=== PATIENT | female | born 1970 | race Asian ===

== ENCOUNTER 2021-01-23 16:56 | Outpatient (REF) | payer OTHER, SELFPAY ==
[2021-01-23 17:58] LABS: Glucose Urine UA NEG (NEG); Leukocyte Esterase Urine NEG (NEG); Nitrite Urine NEG (NEG); Specific Gravity - Urine >= 1.030 (1.005-1.025); Urine Blood NEG (NEG); Urine Ketones 5 MG/DL (NEG); Urine Protein NEG (NEG-TRACE)
[2021-01-23 17:59] LABS: Appearance Urine CLEAR; Color Urine YELLOW
[2021-01-23 18:25] LABS: Hemoglobin 13.5 g/dl (12.0-16.0); Mean Corpuscular HGB Conc 32.9 g/dl (31.0-35.0); Mean Corpuscular Hemoglobin 28.2 pg (27.0-33.0); Mean Corpuscular Volume 85.6 fL (80-98); Mean Platelet Volume 12.5 fL (9.4-12.3); Platelet Count 205 X10*3/uL (160-400); Red Blood Count 4.79 X10*6/uL (4.20-5.50); Red Cell Distribution Width 12.8 % (11.0-16.0); White Blood Count 6.9 X10*3/uL (4.8-10.8)
[2021-01-23 18:27] LABS: Alanine Aminotransferase 34 U/L (0-31); Albumin Level 4.4 g/dL (3.5-5.0); Alkaline Phosphatase 75 U/L (39-117); Anion Gap 13 (12-20); Aspartate Amino Transferase 21 U/L (5-31); Bilirubin Direct 0.3 mg/dL (0.0-0.5); Bilirubin Total 0.5 mg/dL (0.0-1.0); Blood Urea Nitrogen 16 mg/dL (9-16); Calcium 10.4 mg/dL (8.4-10.2); Carbon Dioxide 25 mmol/L (22-29); Chloride 106 mmol/L (96-108); Cholesterol 146 mg/dL; Estimated Glomerular Filt Rate > 60; Glucose Random 90 mg/dL (60-115); HDL Cholesterol 36 mg/dL; LDL Cholesterol Calculated 91 mg/dl; Potassium 4.6 mmol/L (3.3-5.1); Sodium 139 mmol/L (135-145); Total Protein 7.2 g/dL (6.5-8.0); Triglycerides 97 mg/dL
[2021-01-23 18:47] LABS: Thyroid Stimulating Hormone 1.05 uIU/mL (0.32-4.0)
== END 2021-01-23 16:57 | disposition home or self-care (01) ==
LOC: HO.LAB 16:56
PROVIDERS: PCP Internal Medicine; Visit Provider Internal Medicine
DX: E03.9 Hypothyroidism, unspecified (principal)
CPT/HCPCS: 36415; 80048; 80061; 80076; 81003; 84443; 85027

== ENCOUNTER 2021-03-31 13:52 | Outpatient (REF) | payer OTHER, SELFPAY ==
[2021-04-01 13:00] LABS: CT PCR NOT DETECTED (Not Detect.); NG PCR NOT DETECTED (Not Detect.)
[2021-04-01 13:03] LABS: BV Int Neg Control Negative (Negative); BV Int Pos Control Positive (Positive)
[2021-04-04 22:27] LABS: HPV mRNA E6/E7 rflx Not Detected (Not Detected)
== END 2021-03-31 13:53 | disposition home or self-care (01) ==
LOC: HO.LAB 13:52
PROVIDERS: Visit Provider Advanced Practice Midwife
DX: Z01.411 Encounter for gynecological examination (general) (routine) with abnormal findings (principal); Z11.51 Encounter for screening for human papillomavirus (HPV); Z11.3 Encounter for screening for infections with a predominantly sexual mode of transmission; L29.0 Pruritus ani; N89.8 Other specified noninflammatory disorders of vagina; E66.01 Morbid (severe) obesity due to excess calories; Z20.2 Contact with and (suspected) exposure to infections with a predominantly sexual mode of transmission
CPT/HCPCS: 87480; 87491; 87510; 87591; 87624; 87660; 88142

== ENCOUNTER 2021-04-28 14:23 | Outpatient (REF) | payer OTHER, SELFPAY ==
--- NOTE | ~2021-04-28 | MM_ITS ---
EXAMINATION: MM SCREENING DIGITAL BREAST TOMOSYNTHESIS, BILATERAL CLINICAL INFORMATION: Screening. Asymptomatic. The lifetime risk of breast cancer based on the Tyrer-Cuzick Model is 11%. COMPARISON: Outside mammography 12/05/2018 ([facility]). TECHNIQUE: Digital breast tomosynthesis is performed in both the craniocaudal and mediolateral oblique views along with computer-aided detection (CAD). Synthesized 2D images are generated from the tomosynthesis. Additional views are provided: Bilateral CC, bilateral MLO. FINDINGS: There are scattered areas of fibroglandular density (ACR BI-RADS breast composition Category b). There are no significant masses, abnormal calcifications, or other abnormalities. The axilla and skin contours are unremarkable. No significant changes from prior outside exam. MM/MM tomosynthesis screening BI IMPRESSION: No mammographic evidence of malignancy. ASSESSMENT: BI-RADS 1: Negative RECOMMENDATION: Routine annual mammography screening. This patient's information was entered into a reminder system with a target due date for their next mammogram.
== END 2021-04-28 14:24 | disposition home or self-care (01) ==
LOC: HO.MAMMO 14:23
PROVIDERS: Visit Provider Internal Medicine
DX: Z12.31 Encounter for screening mammogram for malignant neoplasm of breast (principal); N64.4 Mastodynia
CPT/HCPCS: 77063; 77067

== ENCOUNTER 2021-10-05 11:40 | Outpatient (REF) | payer OTHER, SELFPAY ==
[2021-10-05 12:14] LABS: Hematocrit 41.8 % (37.0-47.0); Hemoglobin 13.4 g/dl (12.0-16.0); Mean Corpuscular HGB Conc 32.1 g/dl (31.0-35.0); Mean Corpuscular Hemoglobin 27.3 pg (27.0-33.0); Mean Corpuscular Volume 85.1 fL (80.0-98.0); Mean Platelet Volume 11.7 fL (9.4-12.3); Platelet Count 231 X10*3/uL (160-400); Red Blood Count 4.91 X10*6/uL (4.20-5.50); White Blood Count 8.2 X10*3/uL (4.8-10.8)
[2021-10-05 12:29] LABS: Appearance Urine CLEAR; Color Urine YELLOW; Glucose Urine UA NEG (NEG); Leukocyte Esterase Urine NEG (NEG); Nitrite Urine NEG (NEG); Specific Gravity - Urine >= 1.030 (1.005-1.025); Urine Blood 3+ (NEG); Urine Ketones NEG (NEG); Urine Protein NEG (NEG-TRACE)
[2021-10-05 12:39] LABS: Alanine Aminotransferase 26 U/L (0-31); Alkaline Phosphatase 75 U/L (39-117); Anion Gap 13 (12-20); Aspartate Amino Transferase 20 U/L (5-31); Bilirubin Direct 0.2 mg/dL (0.0-0.5); Bilirubin Total 0.5 mg/dL (0.0-1.0); Blood Urea Nitrogen 11 mg/dL (9-16); Calcium 10.3 mg/dL (8.4-10.2); Carbon Dioxide 22 mmol/L (22-29); Chloride 110 mmol/L (96-108); Cholesterol 148 mg/dL; Estimated Glomerular Filt Rate > 60; Glucose Random 95 mg/dL (60-115); HDL Cholesterol 28 mg/dL; LDL Cholesterol Calculated 81 mg/dl; Potassium 4.5 mmol/L (3.3-5.1); Sodium 140 mmol/L (135-145); Triglycerides 198 mg/dL
[2021-10-05 12:53] LABS: Squamous Epithelial Cell Urine TRACE /LPF
[2021-10-05 12:54] LABS: RBC Urine 50-75 /HPF (0); WBC Urine 0-2 /HPF (0-4)
[2021-10-05 13:01] LABS: Thyroid Stimulating Hormone 1.99 uIU/mL (0.32-4.0)
== END 2021-10-05 11:41 | disposition home or self-care (01) ==
LOC: HO.LAB 11:40
PROVIDERS: PCP Internal Medicine; Visit Provider Internal Medicine
DX: E03.9 Hypothyroidism, unspecified (principal); E66.01 Morbid (severe) obesity due to excess calories; L30.9 Dermatitis, unspecified
CPT/HCPCS: 36415; 80048; 80061; 80076; 81001; 84443; 85027

== ENCOUNTER 2022-07-03 11:19 | Outpatient (REF) | payer OTHER, SELFPAY ==
[2022-07-03 12:09] LABS: Hematocrit 42.8 % (37.0-47.0); Hemoglobin 13.7 g/dl (12.0-16.0); Mean Corpuscular Volume 84.3 fL (80.0-98.0); Mean Platelet Volume 11.8 fL (9.4-12.3); Platelet Count 239 X10*3/uL (160-400); Red Blood Count 5.08 X10*6/uL (4.20-5.50); Red Cell Distribution Width 13.1 % (11.0-16.0); White Blood Count 7.9 X10*3/uL (4.8-10.8)
[2022-07-03 12:33] LABS: Estimated Average Glucose 108 mg/dL; Hemoglobin A1c % 5.4 %
[2022-07-03 12:47] LABS: Alanine Aminotransferase 29 U/L (0-31); Albumin Level 4.3 g/dL (3.5-5.0); Alkaline Phosphatase 82 U/L (39-117); Anion Gap 15 (12-20); Aspartate Amino Transferase 19 U/L (5-31); Bilirubin Direct 0.2 mg/dL (0.0-0.5); Bilirubin Total 0.4 mg/dL (0.0-1.0); Blood Urea Nitrogen 15 mg/dL (9-16); Calcium 10.3 mg/dL (8.4-10.2); Carbon Dioxide 22 mmol/L (22-29); Chloride 108 mmol/L (96-108); Cholesterol 145 mg/dL; Estimated Glomerular Filt Rate > 60; Glucose Random 95 mg/dL (60-115); HDL Cholesterol 30 mg/dL; LDL Cholesterol Calculated 88 mg/dl; Potassium 4.6 mmol/L (3.3-5.1); Sodium 140 mmol/L (135-145); Total Protein 7.4 g/dL (6.5-8.0); Triglycerides 138 mg/dL
[2022-07-03 12:53] LABS: Thyroid Stimulating Hormone 1.73 uIU/mL (0.32-4.0)
== END 2022-07-03 11:20 | disposition home or self-care (01) ==
LOC: HO.LAB 11:19
PROVIDERS: PCP Internal Medicine; Visit Provider Internal Medicine
DX: E03.9 Hypothyroidism, unspecified (principal)
CPT/HCPCS: 36415; 80048; 80061; 80076; 83036; 84443; 85027

== ENCOUNTER 2022-07-09 08:51 | Outpatient (REF) | payer OTHER, SELFPAY ==
--- NOTE | ~2022-07-09 | MM_ITS ---
EXAMINATION: MM SCREENING DIGITAL BREAST TOMOSYNTHESIS, BILATERAL CLINICAL INFORMATION: Screening. Asymptomatic. The lifetime risk of breast cancer based on the Tyrer-Cuzick Model is 11.2%. COMPARISON: Mammography: December 05, 2018 and April 28, 2021 TECHNIQUE: Digital breast tomosynthesis is performed in both the craniocaudal and mediolateral oblique views along with computer-aided detection (CAD). Synthesized 2D images are generated from the tomosynthesis. FINDINGS: There are scattered areas of fibroglandular density (ACR BI-RADS breast composition Category b). There are no significant masses, abnormal calcifications, or other abnormalities. MM/MM tomosynthesis screening BI IMPRESSION: No significant changes from prior exam. ASSESSMENT: BI-RADS 1: Negative RECOMMENDATION: Routine annual mammography screening. This patient's information was entered into a reminder system with a target due date for their next mammogram.
== END 2022-07-09 08:52 | disposition home or self-care (01) ==
LOC: HO.MAMMO 08:51
PROVIDERS: Visit Provider Internal Medicine
DX: Z12.31 Encounter for screening mammogram for malignant neoplasm of breast (principal)
CPT/HCPCS: 77063; 77067

== ENCOUNTER → 2022-09-26 09:02 | Outpatient (BNVA) | payer OTHER, SELFPAY | PROVIDERS: PCP Internal Medicine; Visit Provider Advanced Practice Midwife | DX: Z13.89 Encounter for screening for other disorder (principal) ==

== ENCOUNTER 2023-10-02 09:56 | Outpatient (AMB) | payer OTHER, SELFPAY ==
--- NOTE | 2023-10-02 10:09 | A.OFFVIS_ITS ---
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 She is doing well with concerns: Heavy large breast affecting her back pain, limiting exercise and weight loss goals. Sees Dr. Rivera for skin rashes including vulvar treatment for itching. Attempting to eat a healthy diet with calcium and vitamin D and stays active with exercise. Currently sexually active. Denies any vaginal dryness or irritation. Menses have skipped once during the last year, she reports some hot flashes. STI testing offered; she accepts. Last pap smear; 2020. Last mammogram; 2022. Colonoscopy is not UTD. Denies any family history of breast, ovarian or colon cancer. [facility] Medical History Obesity Eczema Acquired hypothyroidism Surgical History History of delivery Family History Mother No problems noted. Father No problems noted. Social History Household Members: Spouse and Children Housing: Apartment Alcohol intake: never Patient Tobacco Use Status: Never used Tobacco e-Cigarette/Vaping Use: Never Used Second Hand Smoke Exposure: No service: No Current occupational status: unemployed Sexual orientation: Straight/Heterosexual Gender identity: Female Cognitive needs: No Hearing needs: No Vision needs: Yes (glasses) Female Reproductive History Menstrual Age of Menarche: 17 Date of last menstrual period: 08/27/23 Total pregnancies: 5 Full term: 4 Number of Living Children: 4 Ab spontaneous: 1 Date of last pap smear: 03/31/21 (neg pap and hpv) Date of Mammogram: 07/09/22 ([facility]) Review of Systems Const All systems reviewed & are unremarkable except as noted in HPI and below Reports as per HPI Eyes Reports no additional complaints ENT Reports no additional complaints Card Reports no additional complaints Resp Reports no additional complaints GI Reports as per HPI and Reports no additional complaints Reports as per HPI Musc Reports no additional complaints Skin/Breast Reports as per HPI Neuro Reports no additional complaints Psych Reports no additional complaints Endo Reports no additional complaints Mann/Lymph Reports no additional complaints Aller/Immun Reports no additional complaints Physical Exam Vital Signs: Last Vital Signs BP 120/86 10/02/23 10:10 BMI result Body Mass Index 41.2 Const General: cooperative, healthy appearing, no acute distress, well developed and alert Orientation/consciousness: patient oriented x3 HEENT Head: Yes normal to inspection Eyes General: appearance normal, both eyes and all related structures Neck Neck: Yes normal visual inspection Thyroid: Thyroid normal Chest Chest palpation & inspection: normal inspection of the chest (Large pendulous) and other ( no puckering, dimpling, peau de orange, retraction, or discharge) Breast/axilla inspection: normal inspection of the breasts Breast/axilla palpation: normal palpation of the breasts Resp Effort & Inspection: normal respiratory effort GI Inspection: Yes normal to inspection, Yes obesity and Yes scar Palpation (GI): Soft to palpation Rectal Exam - Female: deferred General: Yes bladder normal to palpation External Female Exam: normal external appearance and normal appearance of the urethra Speculum Exam - Vagina: normal appearance of the vagina, normal palpation and normal vaginal discharge Speculum Exam - Cervix: normal appearance of the cervix and normal palpation Bimanual exam- vagina & uterus: normal bimanual exam, normal palpation, uterine size normal, bladder normal to palpation, normal palpation and non-tender Bimanual Exam- Adnexa, other: no masses Skin General skin exam: no rashes or lesions noted Rashes: no rashes Neuro General: patient oriented x3 Cognition (Neuro): normal cognition Extrem General: Yes normal to inspection Psych Attitude: cooperative Thought process: Normal thought process present Assessment & Plan Assessment & Plan (1) Encounter for well woman exam with routine gynecological exam: Code(s): Z01.419 - Encounter for gynecological examination (general) (routine) without abnormal findings Plan Discussed: Current recommendations for pap smears per ASCCP guidelines. Breast awareness, periodic self breast exams and yearly mammogram. Maintain a healthy lifestyle, well balanced diet including Calcium 1,200 mg and Vitamin D 600 IU daily, and routine exercise. Use of condoms for prevention. Monitor menstrual cycles, report any unscheduled bleeding, bleeding episodes <21 days apart or heavy/prolonged menstrual bleeding. Call the office for a follow up for any concerns. Once her menses has skipped for full year be considered menopausl. Speak to the PCP regarding colonoscopy planning. All of her questions and concerns were addressed to the best of my ability. RTO in 1 year for annual bike mechanic exam. This note is constructed using voice recognition software. While every effort has been made to ensure accuracy, field artillery cannoneer errors may have been included. Coding Level of Care Code Est Pt Prev Care 40-64y(01797) Diagnoses Encounter for well woman exam with routine gynecological exam Z01.419
[2023-10-02 10:10] VITALS: BP 120/86; BMI 41.2
== END 2023-10-02 10:55 | disposition home or self-care (01) ==
PROVIDERS: Visit Provider Advanced Practice Midwife
DX: Z01.419 Encounter for gynecological examination (general) (routine) without abnormal findings (principal)
CPT/HCPCS: 99396

== ENCOUNTER → 2023-10-02 09:56 | Outpatient (BNVA) | payer OTHER, SELFPAY | PROVIDERS: Visit Provider Advanced Practice Midwife | DX: Z01.419 Encounter for gynecological examination (general) (routine) without abnormal findings (principal) | CPT/HCPCS: 99396 ==

== ENCOUNTER 2023-10-17 14:03 | Outpatient (AMB) | payer OTHER, SELFPAY ==
--- NOTE | 2023-10-17 14:13 | MHC.PC.OV ---
Vital Signs 10/17/23 14:15 Height 5 ft 2.5 in Weight 227 lb BMI 40.9 BP 110/60 Blood Pressure Location Lt brachial Position Sitting Pulse 70 Pulse Source Pulse Oximeter Pulse Oximetry (%) 97 Oxygen Delivery Method Room Air Intake Visit Reasons: Discuss health concerns Intake Note: Patient is here to follow up on Hypothyroidism. Complaint of back pain, sever left knee pain. Tours Hostess Required: No Cushion Filler: Not Required per policy Accompanied by: Self / Same As Patient Allergies No Known Allergies Allergy (Verified 10/17/23 15:07) Medication List - Last Reconciled 10/17/23 by Al Kwong MD hydroxyzine HCl 25 mg PO BID levothyroxine 50 mcg PO DAILY triamcinolone acetonide 0.5% 1 appl topical DAILY Tobacco use date assessed: 10/17/23 Dental Screening Dental Screen Date: 10/17/23 Did you have a dental visit in the last 12 months?: Yes Did you have a dental problem in the last 6 months where you did not have access to dental care?: No Was dental information given to patient?: Patient has dentist HPI Discuss health concerns HPI Details 53-year-old female presents to the office to reestablish her care. Patient continues to have upper back pain. She attributes it to pendulous breast. She has been seeing a behavior interventionist in the past year for a rash between her breasts. They have recommended a reduction in the breast to improve her symptoms. Patient is complaining of left knee pain, worse when she is walking. Would like to get her routine blood work done. [facility] Medical History Obesity Eczema Acquired hypothyroidism Surgical History History of delivery Family History Mother No problems noted. Father No problems noted. Social History Household Members: Spouse and Children Housing: Apartment Alcohol intake: never Patient Tobacco Use Status: Never used Tobacco e-Cigarette/Vaping Use: Never Used Second Hand Smoke Exposure: No service: No Current occupational status: unemployed Sexual orientation: Straight/Heterosexual Gender identity: Female Cognitive needs: No Hearing needs: No Vision needs: Yes (glasses) Female Reproductive History Menstrual Age of Menarche: 17 Questionnaire PHQ-9 Over the last 2 weeks, how often have you been bothered by any of the following problems? 1. Little interest or pleasure in doing things: not at all 2. Feeling down, depressed, or hopeless: not at all 3. Trouble falling or staying asleep, or sleeping too much: not at all 4. Feeling tired or having little energy: not at all 5. Poor appetite or overeating: not at all 6. Feeling bad about yourself - or that you are a failure or have let yourself or your family down: not at all 7. Trouble concentrating on things, such as reading the newspaper or watching television: not at all 8. Moving or speaking so slowly that other people could have noticed. Or the opposite - being so fidgety or restless that you have been moving around a lot more than usual: not at all 9. Thoughts that you would be better off or of hurting yourself in some way: not at all Total score: 0 Depression Screening Interpretation: Negative Depression Screening Done: Yes Source: Developed by Drs. Evan Akbar, Teresa Odonnell, Samir Chandler and colleagues, with an educational otoniel from [employer]. Thrive Questionnaire Date Thrive assessed: 10/17/23 I am a: Patient What is your living situation today?: I have a steady place to live Within the past 12 months, did the food you bought not last and you didn't have the money to get more?: Never true Within the past 12 months, did you worry whether your food would run out before you got money to buy more?: Never true Do you have trouble paying for medicines?: No Do you have trouble getting transportation to medical appointments?: No Do you have trouble paying your heating and electricity bill?: No Do you have trouble taking care of your child, family member or friend?: No Do you have trouble with day-to-day activities such as bathing, preparing meals, shopping, managing finances, etc.?: No Are you currently unemployed and looking for a job?: No Are you interested in more education?: No Currently or been in a relationship where the following occur: no concerns reported THRIVE Score: 0 AUDIT C Alcohol Use Questionnaire (AUDIT-C) 1. How often do you have a drink containing alcohol?: Never Total Score: 0 MAXIMINO-7 AMB Questionnaire MAXIMINO-7 Date MAXIMINO - 7 assessed: 10/17/23 Feeling nervous, anxious, or on edge: 0 = Not at all Not being able to stop or control worryin = Not at all Worrying too much about different things: 0 = Not at all Trouble relaxin = Not at all Being so restless that it is hard to sit still: 0 = Not at all Becoming easily annoyed or irritable: 0 = Not at all Feeling afraid as if something awful might happen: 0 = Not at all Total MAXIMINO-7 score (0-4 normal; 5-9 mild; 10-14 moderate; 15-21 severe): 0 Source: Developed by Drs. Evan Akbar, Teresa Odonnell, Samir Chandler and colleagues, with an educational otoniel from [employer]. Physical exam (Primary Care) Vital Signs: Last Vital Signs Pulse 70 10/17/23 14:15 BP 110/60 10/17/23 14:15 Pulse Ox 97 10/17/23 14:15 Oxygen Delivery Method Room Air 10/17/23 14:15 BMI result Body Mass Index 40.9 Tobacco/Smoking Status: Tobacco use Status Tobacco use date assessed 10/17/23 10/17/23 14:22 Patient Tobacco Use Status Never used Tobacco 10/17/23 14:22 e-Cigarette/Vaping Use Never Used 10/17/23 14:22 PHQ-9: PHQ-9 Score PHQ-9: Total score 0 10/17/23 14:22 Depression Screening Interpretation: Negative Thrive Assessment: Date of Thrive Assessment Date Thrive assessed 10/17/23 10/17/23 14:22 Currently or been in a relationship where the following occur: no concerns reported Assessment and Plan Assessment & Plan (1) Obesity, morbid, BMI 40.0-49.9: Code(s): E66.01 - Morbid (severe) obesity due to excess calories Plan: I have agreed to write a letter supporting the need for breast reduction. Patient will get me the name of the clinic where she would like to get the procedure done. (2) Acquired hypothyroidism: Code(s): E03.9 - Hypothyroidism, unspecified Plan: Blood work has been ordered. Will call with the results. (3) Sprain of left knee: Code(s): S83.92XA - Sprain of unspecified site of left knee, initial encounter Plan: Meloxicam added to the regimen. Knee brace applied. If symptoms do not improve to follow-up here. Orders: Orders Complete Blood Count no Diff Today E03.9 - Hypothyroidism, unspecified, E66.01 - Morbid (severe) obesity due to excess calories Lipid Panel Today E03.9 - Hypothyroidism, unspecified, E66.01 - Morbid (severe) obesity due to excess calories Liver Panel Today E03.9 - Hypothyroidism, unspecified, E66.01 - Morbid (severe) obesity due to excess calories UA and rflx microscopic Today E03.9 - Hypothyroidism, unspecified, E66.01 - Morbid (severe) obesity due to excess calories Hemoglobin A1c Today E03.9 - Hypothyroidism, unspecified, E66.01 - Morbid (severe) obesity due to excess calories Basic Metabolic Panel Today E03.9 - Hypothyroidism, unspecified, E66.01 - Morbid (severe) obesity due to excess calories Thyroid Stimulating Hormone Today E03.9 - Hypothyroidism, unspecified, E66.01 - Morbid (severe) obesity due to excess calories Coding Level of Care Code Est Pt Level 4 (32167) Diagnoses Obesity, morbid, BMI 40.0-49.9 E66.01 Acquired hypothyroidism E03.9 Sprain of left knee S83.92XA
[2023-10-17 14:15] VITALS: BP 110/60; PULSE 70; O2SAT 97; BMI 40.9
== END 2023-10-17 15:15 | disposition home or self-care (01) ==
PROVIDERS: PCP Internal Medicine; Visit Provider Internal Medicine
DX: E03.9 Hypothyroidism, unspecified (principal); E66.01 Morbid (severe) obesity due to excess calories; Z68.41 Body mass index [BMI] 40.0-44.9, adult; S83.92XA Sprain of unspecified site of left knee, initial encounter
CPT/HCPCS: 99214

== ENCOUNTER 2023-10-30 11:34 | Outpatient (REF) | payer OTHER, SELFPAY ==
[2023-10-30 12:59] LABS: Hematocrit 43.7 % (37.0-47.0); Hemoglobin 14.6 g/dl (12.0-16.0); Mean Corpuscular HGB Conc 33.4 g/dl (31.0-35.0); Mean Corpuscular Hemoglobin 28.2 pg (27.0-33.0); Mean Corpuscular Volume 84.4 fL (80.0-98.0); Platelet Count 223 X10*3/uL (160-400); Red Blood Count 5.18 X10*6/uL (4.20-5.50); Red Cell Distribution Width 13.2 % (11.0-16.0); White Blood Count 6.5 X10*3/uL (4.8-10.8)
[2023-10-30 13:10] LABS: Estimated Average Glucose 105 mg/dL; Hemoglobin A1c % 5.3 % (<6.0)
[2023-10-30 13:34] LABS: Alanine Aminotransferase 35 U/L (0-31); Alkaline Phosphatase 87 U/L (39-117); Anion Gap 9 (12-20); Aspartate Amino Transferase 20 U/L (5-31); Bilirubin Direct 0.2 mg/dL (0.0-0.5); Bilirubin Total 0.5 mg/dL (0.0-1.0); Blood Urea Nitrogen 11 mg/dL (9-16); Calcium 10.1 mg/dL (8.4-10.2); Carbon Dioxide 24 mmol/L (22-29); Chloride 111 mmol/L (96-108); Cholesterol 145 mg/dL (<200); Estimated Glomerular Filt Rate > 60; Glucose Random 108 mg/dL (60-115); HDL Cholesterol 30 mg/dL (>40); LDL Cholesterol Calculated 92 mg/dL (<100); Potassium 4.3 mmol/L (3.3-5.1); Sodium 140 mmol/L (135-145); Triglycerides 117 mg/dL (<150)
[2023-10-30 13:50] LABS: Thyroid Stimulating Hormone 2.44 uIU/mL (0.32-4.0)
[2023-10-30 14:23] LABS: Appearance Urine Cloudy; Color Urine Dark Yellow; Glucose Urine UA Negative (Negative); Leukocyte Esterase Urine Small (1+) (Negative); Nitrite Urine Negative (Negative); PH 5.5 (5.0-9.0); Specific Gravity - Urine 1.025 (1.005-1.025); UMIC TRIGGER UA YES; Urine Blood Large (3+) (Negative); Urine Ketones Negative (Negative); Urine Protein 30 (1+) mg/dL (Neg-Trace)
[2023-10-30 14:30] LABS: Bacteria Urine Trace (None Seen); Hyaline Casts Urine 0-2 /LPF (0-2); RBC Urine >20 /HPF (0-2); Squamous Epithelial Cell Urine 0-2 /HPF (0-2); WBC Urine 21-50 /HPF (0-5)
== END 2023-10-30 11:35 | disposition home or self-care (01) ==
LOC: HO.LAB 11:34
PROVIDERS: PCP Internal Medicine; Visit Provider Internal Medicine
DX: E66.01 Morbid (severe) obesity due to excess calories (principal); E03.9 Hypothyroidism, unspecified
CPT/HCPCS: 36415; 80048; 80061; 80076; 81001; 83036; 84443; 85027

== ENCOUNTER 2024-08-03 10:42 | Outpatient (REF) | payer OTHER, SELFPAY | END 2024-08-03 10:43 | disposition home or self-care (01) | LOC: HO.LAB 10:42 | PROVIDERS: PCP Internal Medicine; Visit Provider Internal Medicine | DX: M54.9 Dorsalgia, unspecified (principal); J30.9 Allergic rhinitis, unspecified; E03.9 Hypothyroidism, unspecified; Z23 Encounter for immunization | CPT/HCPCS: 90471; 90656; 99212 ==

== ENCOUNTER 2024-08-03 10:42 | Outpatient (AMB) | payer OTHER, SELFPAY ==
[2024-08-03 10:46] VITALS: BP 136/80; PULSE 64; O2SAT 98; BMI 32.2
--- NOTE | 2024-08-03 10:46 | MHC.PC.OV ---
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 She has successfully achieved significant weight loss, dropping from 227 lbs to 179 lbs, which lowered her BMI to suitable levels for surgical candidacy. Patient was succesful because of her decreased dietary intake and phenteramine. Patient continues to have lower back pain despite losing weight. She is hoping that the health insurance company would approve the breast reduction surgery. In addition, patient reports halitosis, which is possibly linked to chronic sinus congestion. In addition she has Allergic rhinitis and symptoms of eczema, such as ear itching, are ongoing and previously unmedicated on a regular basis. Patient is also requesting a mammogram. [facility] Medical History (Updated 08/03/24 @ 12:46 by Al Kwong MD) Allergic rhinitis Obesity Eczema Acquired hypothyroidism Surgical History History of delivery Family History Mother No problems noted. Father No problems noted. Social History Household Members: Spouse and Children Housing: Apartment Alcohol intake: never Patient Tobacco Use Status: Never used Tobacco e-Cigarette/Vaping Use: Never Used Second Hand Smoke Exposure: No service: No Current occupational status: unemployed Sexual orientation: Straight/Heterosexual Gender identity: Female Cognitive needs: No Hearing needs: No Vision needs: Yes (glasses) Female Reproductive History Menstrual Age of Menarche: 17 Questionnaire Thrive Questionnaire Date Thrive assessed: 10/17/23 AUDIT C Alcohol Use Questionnaire (AUDIT-C) 1. How often do you have a drink containing alcohol?: Never 3. How often do you have six or more drinks on one occasion?: Never Total Score: 0 MAXIMINO-7 AMB Questionnaire MAXIMINO-7 Date MAXIMINO - 7 assessed: 10/17/23 Source: Developed by Drs. Evan Akbar, Teresa Odonnell, Samir Chandler and colleagues, with an educational otoniel from [employer]. Physical exam (Primary Care) Vital Signs: Last Vital Signs Pulse 64 08/03/24 10:46 BP 136/80 08/03/24 10:46 Pulse Ox 98 08/03/24 10:46 Oxygen Delivery Method Room Air 08/03/24 10:46 BMI result Body Mass Index 32.2 Tobacco/Smoking Status: Tobacco use Status Tobacco use date assessed 10/17/23 08/03/24 10:46 Patient Tobacco Use Status Never used Tobacco 08/03/24 10:46 e-Cigarette/Vaping Use Never Used 08/03/24 10:46 Thrive Assessment: Date of Thrive Assessment Date Thrive assessed 10/17/23 08/03/24 10:46 Const General: cooperative and healthy appearing Nutritional Appearance: well nourished Orientation/consciousness: patient oriented x3 Limitations: no limitations HENMT Head: Yes normal to inspection Eyes General: appearance normal, both eyes and all related structures Neck Neck: Yes normal visual inspection Chest Chest palpation & inspection: normal palpation of entire chest wall Resp Effort & Inspection: normal respiratory effort Neuro General: patient oriented x3 Office Procedures Flu Questionnaire Does the patient have a severe egg allergy?: No Does the patient have severe life threatening allergies?: No Does the patient have a fever or illness today?: No Has the patient ever had Guillain-[place] Syndrome?: No Has the patient ever had any past reaction to a flu shot?: No Immunizations Fluarix Triv [id number] (PF) 45 mcg (15 mcg x 3)/0.5 mL IM syringe Performing Provider: Al Kwong MD [facility] Administered by: CANDICE Nicole on 08/03/24 11:19 Dose Route Admin Location Dispensed Lot Number Expiration Date [facility] Cul[employer] Specialist 0.5 mL IM Left Deltoid 0.5 mL [id number] 03/15/25 [id number] [employer] VIS Given Date VIS Provided VIS Publication Date 08/03/24 Single Vaccine 21 Eligibility Eligibility Date Funding Source Not [facility] Eligible 08/03/24 Private Coding Level of Care Code Est Pt Level 4 (16112) Diagnoses Allergic rhinitis J30.9 Acquired hypothyroidism E03.9 Upper back pain M54.9 Assessment & Plan Assessment & Plan (1) Allergic rhinitis: Code(s): J30.9 - Allergic rhinitis, unspecified Category: Medical Plan: Flonase and cetirizine ordered. (2) Acquired hypothyroidism: Code(s): E03.9 - Hypothyroidism, unspecified Category: Medical Plan: Blood work to check TSH has been ordered. Based on the results, her thyroid medications will be adjusted. (3) Upper back pain: Code(s): M54.9 - Dorsalgia, unspecified Category: Medical Plan: Patient continues to have upper back pain despite losing weight and other measures. She should be considered for breast reduction surgery and hopefully her insurance company approves of the same Orders: Orders Influenza [id number] Immunization Today Z23 - Encounter for immunization
== END 2024-08-03 11:25 | disposition home or self-care (01) ==
PROVIDERS: PCP Internal Medicine; Visit Provider Internal Medicine
DX: J30.9 Allergic rhinitis, unspecified (principal); E03.9 Hypothyroidism, unspecified; M54.9 Dorsalgia, unspecified; Z23 Encounter for immunization

== ENCOUNTER 2024-08-05 10:57 | Outpatient (REF) | payer OTHER, SELFPAY ==
[2024-08-05 11:43] LABS: Hematocrit 41.1 % (37.0-47.0); Hemoglobin 13.8 g/dl (12.0-16.0); Mean Corpuscular HGB Conc 33.6 g/dl (31.0-35.0); Mean Corpuscular Hemoglobin 27.9 pg (27.0-33.0); Mean Corpuscular Volume 83.2 fL (80.0-98.0); Mean Platelet Volume 11.7 fL (9.4-12.3); Platelet Count 223 X10*3/uL (160-400); Red Blood Count 4.94 X10*6/uL (4.20-5.50); White Blood Count 6.7 X10*3/uL (4.8-10.8)
[2024-08-05 11:57] LABS: Appearance Urine Clear; Color Urine Yellow; Glucose Urine UA Negative (Negative); Leukocyte Esterase Urine Trace (Negative); Nitrite Urine Negative (Negative); UMIC TRIGGER UA YES; Urine Blood Moderate (2+) (Negative); Urine Ketones Negative (Negative); Urine Protein Negative (Neg-Trace)
[2024-08-05 12:07] LABS: Bacteria Urine Trace (None Seen); Hyaline Casts Urine 0-2 /LPF (0-2); RBC Urine 0-2 /HPF (0-2); WBC Urine 0-5 /HPF (0-5)
[2024-08-05 12:33] LABS: Alanine Aminotransferase 23 U/L (0-31); Albumin Level 4.2 g/dL (3.5-5.0); Alkaline Phosphatase 85 U/L (39-117); Anion Gap 10 (12-20); Aspartate Amino Transferase 22 U/L (5-31); Bilirubin Direct 0.2 mg/dL (0.0-0.5); Bilirubin Total 0.5 mg/dL (0.0-1.0); Blood Urea Nitrogen 16 mg/dL (9-16); Calcium 10.2 mg/dL (8.4-10.2); Carbon Dioxide 27 mmol/L (22-29); Chloride 105 mmol/L (96-108); Cholesterol 138 mg/dL (<200); Estimated Glomerular Filt Rate > 60; Glucose Random 95 mg/dL (60-115); HDL Cholesterol 40 mg/dL (>40); LDL Cholesterol Calculated 85 mg/dL (<100); Potassium 4.4 mmol/L (3.3-5.1); Sodium 138 mmol/L (135-145); Total Protein 7.1 g/dL (6.5-8.0); Triglycerides 66 mg/dL (<150)
[2024-08-05 12:35] LABS: Thyroid Stimulating Hormone 1.93 uIU/mL (0.32-4.0)
== END 2024-08-05 10:58 | disposition home or self-care (01) ==
LOC: HO.LAB 10:57
PROVIDERS: PCP Internal Medicine; Visit Provider Internal Medicine
DX: E03.9 Hypothyroidism, unspecified (principal); J30.9 Allergic rhinitis, unspecified
CPT/HCPCS: 36415; 80048; 80061; 80076; 81001; 81003; 84443; 85027

== ENCOUNTER 2024-08-28 14:26 | Outpatient (REF) | payer OTHER, SELFPAY ==
--- OUTSIDE RECORDS SUMMARY | 2024-08-28 14:27 | XMS_ITS | Continuity of Care Document ---
Author Organization [facility] ty[facility] Address [address] [place] [address] [address] [place] [address]- Care Team Providers Care Urgent Care Nurse Practitioner Name Role Phone Elenita AVERY, Al Almaguer Primary Care Physic catalina Encounter [facility] Date(s): 07/08/24 - 08/07/24 [facility] [address] [place] [id number] Attending Physician: Chapis Stovall Admitting Physician: Chapis Stovall Referring Physician: Chapis Stovall Encounter Type: Triage Allergies, Adverse Reactions, Alerts No Known Allergies Immunizations Given and Recorded Vaccine Date Status Refusal Reason diphtheria/tetanus/pertussis, acel(DTaP) 1 02/13/12 Given 1Admin Note: VIS 10-09-11 Medications (Vitamin D3) Cholecalciferol 400 CUSTODIAL units/mL oral syringe 1 mL 1999 Unknown, Oral, 0 Refill(s), Take 2,000 Units by mouth daily., 0 Refills, 07/08/24 8:42:00 AM EDT, Partial fill upon patient request if the prescription is for a schedule II opioid drug. Start Date: 07/08/24 Status: Ordered Repeat number: 1 betamethasone topical dipropionate 0.05% lotion 0 Refill(s), APPLY TO SCALP TWICE A DAY NEEDED FLARES, DECREASE TO DAILY /EVERY OTHER DAY SYMPTOMS IMPROVE, 0 Refills, 11/30/23 8:00:00 PM EDT, Partial fill upon patient request if the prescription is for a schedule II opioid drug. Start Date: 11/30/23 Status: Ordered Repeat number: 1 clobetasol 0.05% topical cream 0 Refill(s), 0 Refills, 12/07/23 8:00:00 PM EDT, Partial fill upon patient request if the prescription is for a schedule II opioid drug. Start Date: 12/07/23 Status: Ordered Repeat number: 1 hydrocortisone 2.5% topical ointment 0 Refill(s), APPLY TO ITCHY AREAS ON FACE, UNDER BREASTS, AND IN GROIN TWOXDAILY DECREASE USE SYMPTOMS IMPROVE, 0 Refills, 01/02/24 8:00:00 PM EDT, Partial fill upon patient request if the prescription is for a schedule II opioid drug. Start Date: 01/02/24 Status: Ordered Repeat number: 1 levothyroxine 0.1 mg oral tablet 1 tablet = 100 mcg, By Mouth, Daily, 1 tab daily but take 2 on Saturday and Saturday., # 38 tablet, 5 Refills, Maintenance, 04/18/15 3:37:47 PM EDT, Tablet, [facility]/pharmacy #[id number] Start Date: 04/18/15 Status: Ordered Quantity: 38.0 Unit: tablet Repeat number: 6 phentermine 15 mg oral capsule 15 Unknown, Oral, 1 Refill(s), take 1 capsule by mouth daily before breakfast, 0 Refills, 07/06/24 8:00:00 PM EDT, Partial fill upon patient request if the prescription is for a schedule II opioid drug. Start Date: 07/06/24 Status: Ordered Repeat number: 1 Problem List Condition Confirmation Course Effective Dates Status Health [facility] Informant COVID-19 1 Confirmed 06/19/22 Active Female infertility associated with male factors Confirmed Active Obese class I Confirmed Active Confirmed Active 1Problem added by Discern Expert Social History Social History Type Response Smoking Status Never smoker entered on: 07/28/15 Sex Sex Representation Female (finding) Patient Care team information Care Team Personnel Name: Elenita AVERY, Al Almaguer Position: Reference Physician Member Role: PCP Address: [address] [place] [address]- Telecom: Care Team Related Persons Name: DUONG DE JESUSHAMMAD Insurance Providers Guarantor name: [facility] Information #: 1 Payer: [employer] Member Number: NA Policy Number: NA Group Number: NA
--- OUTSIDE RECORDS SUMMARY | 2024-08-28 14:27 | XMS_ITS | Continuity of Care Document ---
Author Organization [facility] tyree Address [address] [place] [address] [address] [place] [address]- Care Team Providers Care Distribution Operations Supervisor Name Role Phone Elenita AVERY, Al Almaguer Primary Care Physic catalina [place] [facility] [place]/24 [facility] [address] [place] [id number] Encounter Type: Triage Allergies, Adverse Reactions, Alerts [...] Refills, Maintenance, 04/18/15 3:37:47 PM EDT, Tablet, [id number] Start Date: 04/18/15 Status: Ordered Quantity: [...] Reference Physician Member Role: PCP Address: [address] [place] [address]- Telecom: Care Team Related Persons Name: ELVER DE JESUS Insurance Providers Guarantor name: [facility] Information #: 1 Payer: [employer] Member Number: NA Policy Number: NA Group Number: NA
== END 2024-08-28 14:27 | disposition home or self-care (01) ==
LOC: HO.MAMMO 14:26
PROVIDERS: PCP Internal Medicine; Visit Provider Internal Medicine
DX: Z12.31 Encounter for screening mammogram for malignant neoplasm of breast (principal)
CPT/HCPCS: 77063; 77067

== ENCOUNTER → 2024-08-28 14:30 | Outpatient (BNV) | payer OTHER, SELFPAY | PROVIDERS: PCP Internal Medicine; Visit Provider Internal Medicine | DX: Z12.31 Encounter for screening mammogram for malignant neoplasm of breast (principal) | CPT/HCPCS: 77063; 77067 ==

== ENCOUNTER 2024-11-19 10:35 | Outpatient (AMB) | payer OTHER, SELFPAY ==
--- NOTE | 2024-11-19 10:49 | MHC.PC.OV ---
Vital Signs 11/19/24 10:51 Height 5 ft 2.5 in Weight 181 lb BMI 32.6 BP 130/66 Blood Pressure Location Lt brachial Position Sitting Pulse 62 Pulse Source Pulse Oximeter Temp 97.5 F Temp Source Temporal Artery Scan Pulse Oximetry (%) 98 Oxygen Delivery Method Room Air Intake Visit Reasons: 3mth f/u Intake Note: Patient is here to follow up on Hyprothyroidism.. 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 Boom Stick Worker: Not Required per policy Accompanied by: Self / Same As Patient Allergies No Known Allergies Allergy (Verified 11/19/24 14:00) Medication List - Last Reconciled 11/19/24 by Al Kwong MD fluticasone propionate 50 mcg/actuation (Flonase Allergy Relief) 1 spray intranasal DAILY hydroxyzine HCl 25 mg PO BID levothyroxine 50 mcg PO DAILY phentermine 15 mg PO QAM triamcinolone acetonide 0.5% 1 appl topical DAILY Tobacco use date assessed: 11/19/24 Dental Screening Dental Screen Date: 11/19/24 Did you have a dental visit in the last 12 months?: No Did you have a dental problem in the last 6 months where you did not have access to dental care?: No Was dental information given to patient?: No [facility] Medical History (Updated 08/03/24 @ 12:46 by Al Kwong MD) Allergic rhinitis Obesity Eczema Acquired hypothyroidism Surgical History History of delivery Family History Mother No problems noted. Father No problems noted. Social History Household Members: Spouse and Children Housing: Apartment Alcohol intake: never Patient Tobacco Use Status: Never used Tobacco e-Cigarette/Vaping Use: Never Used Second Hand Smoke Exposure: No service: No Current occupational status: unemployed Sexual orientation: Straight/Heterosexual Gender identity: Female Cognitive needs: No Hearing needs: No Vision needs: Yes (glasses) Female Reproductive History Menstrual Age of Menarche: 17 Questionnaire PHQ-9 Over the last 2 weeks, how often have you been bothered by any of the following problems? 1. Little interest or pleasure in doing things: not at all 2. Feeling down, depressed, or hopeless: not at all 3. Trouble falling or staying asleep, or sleeping too much: not at all 4. Feeling tired or having little energy: not at all 5. Poor appetite or overeating: not at all 6. Feeling bad about yourself - or that you are a failure or have let yourself or your family down: not at all 7. Trouble concentrating on things, such as reading the newspaper or watching television: not at all 8. Moving or speaking so slowly that other people could have noticed. Or the opposite - being so fidgety or restless that you have been moving around a lot more than usual: not at all 9. Thoughts that you would be better off or of hurting yourself in some way: not at all Total score: 0 Depression Screening Interpretation: Negative Depression Screening Done: Yes Source: Developed by Drs. Evan Akbar, Teresa Odonnell, Samir Chandler and colleagues, with an educational otoniel from [employer]. Thrive Questionnaire Date Thrive assessed: 11/19/24 I am a: Patient What is your living situation today?: I have a steady place to live Within the past 12 months, did the food you bought not last and you didn't have the money to get more?: Never true Within the past 12 months, did you worry whether your food would run out before you got money to buy more?: Never true Do you have trouble paying for medicines?: No Do you have trouble getting transportation to medical appointments?: No Do you have trouble paying your heating and electricity bill?: No Do you have trouble taking care of your child, family member or friend?: No Do you have trouble with day-to-day activities such as bathing, preparing meals, shopping, managing finances, etc.?: No Are you currently unemployed and looking for a job?: No Are you interested in more education?: No Please select the resources that you would like help with: None Currently or been in a relationship where the following occur: No concerns reported THRIVE Score: 0 AUDIT C Alcohol Use Questionnaire (AUDIT-C) 1. How often do you have a drink containing alcohol?: Never 3. How often do you have six or more drinks on one occasion?: Never Total Score: 0 MAXIMINO-7 AMB Questionnaire MAXIMINO-7 Date MAXIMINO - 7 assessed: 11/19/24 Feeling nervous, anxious, or on edge: 0 = Not at all Not being able to stop or control worryin = Not at all Worrying too much about different things: 0 = Not at all Trouble relaxin = Not at all Being so restless that it is hard to sit still: 0 = Not at all Becoming easily annoyed or irritable: 0 = Not at all Feeling afraid as if something awful might happen: 0 = Not at all Total MAXIMINO-7 score (0-4 normal; 5-9 mild; 10-14 moderate; 15-21 severe): 0 Source: Developed by Drs. Evan Akbar, Teresa Odonnell, Samir Chandler and colleagues, with an educational otoniel from [employer]. Physical exam (Primary Care) Vital Signs: Last Vital Signs Temp 97.5 F 11/19/24 10:51 Pulse 62 11/19/24 10:51 BP 130/66 11/19/24 10:51 Pulse Ox 98 11/19/24 10:51 Oxygen Delivery Method Room Air 11/19/24 10:51 Care Plan Goal for BP management: Blood pressure is in range. BMI result Body Mass Index 32.6 BMI Assessment/Plan discussion: High (1 lb per week weight loss suggested.) BMI High, discussed plan: lifestyle, weight reduction and dietary Tobacco/Smoking Status: Tobacco use Status Tobacco use date assessed 11/19/24 11/19/24 10:57 Patient Tobacco Use Status Never used Tobacco 11/19/24 10:57 e-Cigarette/Vaping Use Never Used 11/19/24 10:57 PHQ-9: PHQ-9 Score PHQ-9: Total score 0 11/19/24 11:13 Depression Screening Interpretation: Negative Thrive Assessment: Date of Thrive Assessment Date Thrive assessed 11/19/24 11/19/24 10:57 Currently or been in a relationship where the following occur: No concerns reported Coding Level of Care Code Est Pt Level 4 (98769) Complex EM visit Add On G2211 Diagnoses Acquired hypothyroidism E03.9 Obesity, morbid, BMI 40.0-49.9 E66.01 Allergic rhinitis J30.9 Assessment & Plan Assessment & Plan (1) Acquired hypothyroidism: Code(s): E03.9 - Hypothyroidism, unspecified Category: Medical Plan: TSH is in range. Continue current medications. (2) Obesity, morbid, BMI 40.0-49.9: Code(s): E66.01 - Morbid (severe) obesity due to excess calories Category: Medical Plan: Patient is scheduled for bilateral mammoplasty. After the procedure is complete to follow-up here. (3) Allergic rhinitis: Code(s): J30.9 - Allergic rhinitis, unspecified Category: Medical Plan: An ENT appointment will be scheduled. She may benefit from allergy treatment. Plan History of Present Illness The patient is a 54-year-old female presenting to discuss her chronic medical conditions. She is being scheduled for breast reduction surgery. Continues to have sore throat. Previous prescribed meds (steroid nasal sprays not of much help) . A Sleep study has been performed the results are not available. Concomitantly, she is dealing with allergic rhinitis, experiencing bothersome mucus accumulation and its sequela, such as throat discomfort and halitosis. Prior allergy testing confirmed sensitivities to environmental allergens, though prior pharmacological interventions have not effectively managed her symptoms. Referral to the otolaryngology specialty for further allergy management is anticipated. The patient comments on experiencing acute episodes of sore throat, which she associates with these chronic conditions. Social History - Patient engages in weight management efforts. - Symptoms have impacted daily functioning due to excessive snoring and associated sleep disruption. - Stress due to postponed surgical appointments affecting management of chronic conditions. Review of Systems - Respiratory: Reports chronic snoring and mucus stuck in throat. - Throat: Reports chronic sore throat and halitosis. - Endocrine: Recent thyroid function reportedly normal. Physical Exam General: Cooperative and healthy appearing Nutritional Appearance: Well nourished Orientation/consciousness: Patient oriented x3 Limitations: No limitations Head: Normal to inspection General: Appearance normal, both eyes and all related structures Neck: Normal visual inspection Chest: Normal palpation of entire chest wall Respiratory: Normal respiratory effort Neurology: Patient oriented x3 Results - Tests and Diagnostics: Sleep study completed; results pending. - Allergy Testing: Positive for mold, pollens, and dust. Plan The treatment plan entails scheduling the previously deferred bilateral reduction mammoplasty set for December to alleviate physical discomfort. Management of obstructive sleep apnea focuses on awaiting the pending sleep study results, with an integrated approach post-surgery to address sleep quality. Regarding allergic rhinitis, a referral to otolaryngology has been initiated, leveraging prior allergy test findings towards a more effective therapeutic regimen. Patient was informed and verbally consented to the use of an ambient scribe for clinic note documentation during this visit. Discussion Notes During the visit, we discussed the impact of chronically delayed surgery for chest reduction on the patient's overall wellbeing and associated obstructive sleep apnea symptoms. I detailed the current plan and timeline, underscoring a coordinated post-procedural approach addressing sleep quality. Regarding her allergies, I discussed the possible referral benefits to otolaryngology, encompassing additional evaluation and treatment options. We reviewed past allergy test results and the ineffectiveness of previous medications, recognizing the need for tailored management moving forward. Follow-ups were advised after scheduled surgical intervention and post-invitations for ENT referral to monitor progress and adjust care as necessary. Patient Instructions - Proceed with planned mammoplasty on December 17. - Await further communication post-sleep study for obstructive sleep apnea management. - Follow up with ENT for comprehensive allergy and throat symptom management. - Continue weight management strategies as advised. - Contact if symptoms worsen or if there are concerns before scheduled appointments. Medications: Refilled levothyroxine 50 mcg PO DAILY 90 tabs 0RF
[2024-11-19 10:51] VITALS: BP 130/66; PULSE 62; TEMP 36.4; O2SAT 98; BMI 32.6
--- OUTSIDE RECORDS SUMMARY | 2024-11-19 12:39 | XMS_ITS | Continuity of Care Document ---
Author Organization [facility] Address [address] [place] [address] ve [address] [place] [address]- Care Team Providers Care Textile Stylist Name Role Phone Elenita AVERY, Al Almaguer Primary Care Physic catalina Encounter [facility] [place] Date(s): 09/23/24 - 10/23/[address] [place], [place] [address] Encounter Type: Triage Allergies, Adverse Reactions, Alerts No Known Allergies Immunizations Given and Recorded Vaccine Date Status Refusal Reason diphtheria/tetanus/pertussis, acel(DTaP) 1 02/13/12 Given 1Admin Note: VIS 10-09-11 Medications (Vitamin D3) Cholecalciferol 400 FPC units/mL oral syringe 1 mL 1999 Unknown, [...] Reference Physician Member Role: PCP Address: [address] [place] [address]- Telecom: Care Team Related Persons Name: ELVER DE JESUS Insurance Providers Guarantor name: [facility] Information #: 1 Payer: [employer] Member Number: NA Policy Number: NA Group Number: NA
--- OUTSIDE RECORDS SUMMARY | 2024-11-19 12:39 | XMS_ITS | Continuity of Care Document ---
Author Organization [facility] Address [address] [place] [address] [address] [place] [address]- Care Team Providers Care Supervisor Cell Efficiency Name Role Phone Elenita AVERY, Al Almaguer Primary Care Physic catalina Encounter [facility] [place] Date(s): 10/12/24 - 11/11/24 [facility] [address] [place] [id number] Encounter Type: Triage Allergies, Adverse Reactions, Alerts No Known Allergies Immunizations Given and Recorded Vaccine Date Status Refusal Reason diphtheria/tetanus/pertussis, acel(DTaP) 1 02/13/12 Given 1Admin Note: VIS 10-09-11 Medications (Vitamin D3) Cholecalciferol 400 ASSISTED units/mL oral syringe 1 mL 1999 Unknown, [...] Reference Physician Member Role: PCP Address: [address] [place] [address]- Telecom: Care Team Related Persons Name: ELVER DE JESUS Insurance Providers Guarantor name: [facility] Information #: 1 Payer: [employer] Member Number: NA Policy Number: NA Group Number: NA
== END 2024-11-19 11:18 | disposition home or self-care (01) ==
PROVIDERS: PCP Internal Medicine; Visit Provider Internal Medicine
DX: E03.9 Hypothyroidism, unspecified (principal); E66.01 Morbid (severe) obesity due to excess calories; J30.9 Allergic rhinitis, unspecified; Z68.32 Body mass index [BMI] 32.0-32.9, adult

== ENCOUNTER → 2024-11-19 10:35 | Outpatient (BNVA) | payer OTHER, SELFPAY | PROVIDERS: PCP Internal Medicine; Visit Provider Internal Medicine | DX: E03.9 Hypothyroidism, unspecified (principal); E66.01 Morbid (severe) obesity due to excess calories; J30.9 Allergic rhinitis, unspecified | CPT/HCPCS: 99212 ==

== ENCOUNTER 2025-04-20 11:16 | Outpatient (AMB) | payer OTHER, SELFPAY ==
--- NOTE | 2025-04-20 11:20 | MHC.OFFVIS ---
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 Farm Loan Representative concerns: none. Has menses-spacing. Menarche age 17. Currently sexually active. Denies any vaginal dryness or irritation. STI testing offered; she declined. Attempting to eat a healthy diet with calcium and vitamin D and stays active with exercise, lost weight w/diet. Last pap smear; 2020, negative. Last mammogram; 2023. Colonoscopy is UTD. Denies any family history of breast, ovarian or colon cancer. [facility] Medical History Allergic rhinitis Obesity Eczema Acquired hypothyroidism Surgical History H/O bilateral breast reduction surgery History of delivery Family History Mother No problems noted. Father No problems noted. Social History Household Members: Spouse and Children Housing: Apartment Alcohol intake: never Patient Tobacco Use Status: Never used Tobacco e-Cigarette/Vaping Use: Never Used Second Hand Smoke Exposure: No service: No Current occupational status: unemployed Sexual orientation: Straight/Heterosexual Gender identity: Female Cognitive needs: No Hearing needs: No Vision needs: Yes (glasses) Female Reproductive History Menstrual Age of Menarche: 17 Duration of menses: 3-5 days Date of last menstrual period: 03/16/25 control method: none Total pregnancies: 5 Full term: 4 Ab spontaneous: 1 Date of last pap smear: 03/31/21 (negative pap smear, negative hpv) Date of Mammogram: 08/28/24 ([facility] RAD 1) Review of Systems Const All systems reviewed & are unremarkable except as noted in HPI and below Reports as per HPI Eyes Reports no additional complaints ENT Reports no additional complaints Card Reports no additional complaints Resp Reports no additional complaints GI Reports as per HPI and Reports no additional complaints Reports as per HPI Musc Reports no additional complaints Skin/Breast Reports as per HPI Neuro Reports no additional complaints Psych Reports no additional complaints Endo Reports no additional complaints Mann/Lymph Reports no additional complaints Aller/Immun Reports no additional complaints Physical Exam Vital Signs: Last Vital Signs BP 130/72 04/20/25 11:29 BMI result Body Mass Index 32.2 Const General: cooperative, healthy appearing, no acute distress, well developed and alert Orientation/consciousness: patient oriented x3 HEENT Head: Yes normal to inspection Eyes General: appearance normal, both eyes and all related structures Neck Neck: Yes normal visual inspection Thyroid: Thyroid normal Chest Other: Bilateral breast reduction scarring Chest palpation & inspection: normal inspection of the chest and other (no puckering, dimpling, peau de orange, retraction, discharge, masses) Breast/axilla inspection: normal inspection of the breasts Breast/axilla palpation: normal palpation of the breasts Resp Effort & Inspection: normal respiratory effort GI Inspection: Yes normal to inspection and Yes scar Palpation (GI): Soft to palpation Rectal Exam - Female: deferred General: Yes bladder normal to palpation External Female Exam: normal external appearance and normal appearance of the urethra Speculum Exam - Vagina: normal appearance of the vagina, normal palpation and normal vaginal discharge Speculum Exam - Cervix: normal appearance of the cervix and normal palpation Bimanual exam- vagina & uterus: normal bimanual exam, normal palpation, uterine size normal, bladder normal to palpation, normal palpation and non-tender Bimanual Exam- Adnexa, other: no masses Skin General skin exam: no rashes or lesions noted Rashes: no rashes Neuro General: patient oriented x3 Cognition (Neuro): normal cognition Extrem General: Yes normal to inspection Psych Attitude: cooperative Thought process: Normal thought process present Assessment & Plan Assessment & Plan (1) Encounter for well woman exam with routine gynecological exam: Code(s): Z01.419 - Encounter for gynecological examination (general) (routine) without abnormal findings Plan Discussed: Current recommendations for pap smears per ASCCP guidelines. Breast awareness, periodic self breast exams and yearly mammogram. Maintain a healthy lifestyle, well balanced diet including Calcium 1,200 mg and Vitamin D 600 IU daily, and routine exercise. Menopause verses perimenopause. Menopause is definitive of 1 year of no menses or 12 months in succession. Report any abnormal uterine bleeding in example prolonged episodes, or short intervals less than 24 days. Patient verbalizes understanding and agrees to the plan of care. She was given opportunity to ask questions and all questions were answered to the best of my ability. RTO in 1 year for annual can cutter exam. This note is constructed using voice recognition software. While every effort has been made to ensure accuracy, clerical methods analyst errors may have been included. Coding Level of Care Code Est Pt Prev Care 40-64y(33441) Diagnoses Encounter for well woman exam with routine gynecological exam Z01.419
[2025-04-20 11:29] VITALS: BP 130/72; BMI 32.2
--- OUTSIDE RECORDS SUMMARY | 2025-04-20 12:00 | XMS_ITS | Clinical Summary ---
Author Organization [facility] Address [address] [place] [phone] Phone Care Team Providers Care Internet Network Specialist Name Role Phone Al Kwong MD Primary Care Provid er Allergies No known active allergies Medications hydrOXYzine (ATARAX) 25 MG tablet Take 25 mg by mouth daily. 10/27/19 24 Active levothyroxine (SYNTHROID, LEVOTHROID) 50 MCG tablet Take 50 mcg by mouth every morning. Active clobetasol (TEMOVATE) 0.05 % cream 12/08/19 24 Active hydrocortisone 2.5 % ointment APPLY TO ITCHY AREAS ON FACE, UNDER BREASTS, AND IN GROIN TWOXDAILY DECREASE USE SYMPTOMS IMPROVE 01/03/20 24 Active cholecalcifero l, vitamin D3, (VITAMIN D3 ORAL) Take 2,000 Units by mouth daily. Active azelastine (ASTELIN) 137 mcg (0.1 %) nasal spray 1 spray by Nasal route 2 (two) times a day. 30 mL 5 03/23/20 25 Active esomeprazole (NEXIUM) 40 MG capsule Take 1 capsule (40 mg total) by mouth daily before breakfast. 30 capsule 2 03/23/20 25 Active famotidine (PEPCID) 40 MG tablet Take 1 tablet (40 mg total) by mouth nightly at bedtime. 30 tablet 2 03/23/20 25 Active phentermine 15 MG capsuleIndicat ions:Class 1 obesity with serious comorbidity and body mass index (BMI) of 31.0 to 31.9 in adult, unspecified obesity type TAKE 1 CAPSULE BY MOUTH EVERY DAY BEFORE BREAKFAST 30 capsule 04/13/20 Active loratadine (CLARITIN) 10 mg tablet Take 10 mg by mouth daily as needed for allergies. 2024 Discontinued(N o longer taking) phentermine 15 MG capsuleIndicat ions:Class 1 obesity with serious comorbidity and body mass index (BMI) of 31.0 to 31.9 in adult, unspecified obesity type TAKE 1 CAPSULE BY MOUTH EVERY DAY BEFORE BREAKFAST 30 capsule 03/08/20 25 2024 Discontinued montelukast (SINGULAIR) 10 mg tablet 90 each, 0 Refill(s), TAKE 1 TABLET BY MOUTH EVERYDAY AT BEDTIME, Refills 0, 01/29/25 2:04:00 PM EDT, Partial fill upon patient request if the prescription is for a schedule II opioid drug. 01/30/202024 Discontinued(N o longer taking) azelastine (ASTELIN) 137 mcg (0.1 %) nasal spray 1 spray by Nasal route 2 (two) times a day. 01/30/20 25 2024 Discontinued(R eorder) esomeprazole (NEXIUM) 40 MG capsule Take 1 capsule (40 mg total) by mouth 2 (two) times a day. 60 capsule 2 03/23/20 25 2024 Discontinued Active Problems Problem Noted Date Diagnosed Date Voice disturbance 03/23/2025 Assessment & Plan (03/23/2025 12:54 PM EDT): Change in voice quality despite normal-appearing vocal cords on prior laryngoscopy. No clear evidence for laryngopharyngeal reflux. Will refer to speech therapy for further evaluation. Seasonal allergic rhinitis 12/15/2024 Assessment & Plan (03/23/2025 12:56 PM EDT): Active rhinitis seen on rhinolaryngoscopy at last visit with postnasal drip. She denies significant benefit from Azelastine though I believe there has been some significant improvement based on overall description of symptoms. Recommend continue Azelastine twice daily. Recommend START nasal steroid other than generic Flonase. Have recommended options to include Nasonex, generic Rhinocort, or Flonase Sensimist. Assessment & Plan (12/15/2024 10:59 AM EDT): Seasonal as well as perennial allergic rhinitis with evidence of excess mucus laryngoscopic exam despite relatively normal anterior nasal exam. Have recommended start trial of Azelastine nasal spray given reported no benefit from fluticasone. If ineffective after 2 to 4 weeks, suggest trial of montelukast. Reviewed side effects recommendation to discontinue therapy if develops bad dreams or mood disturbance. Chronic cough 12/15/2024 Assessment & Plan (03/23/2025 12:55 PM EDT): Chronic cough patient states persists though none witnessed on exam. Given the ongoing change in voice, will proceed with empiric trial treatment for silent reflux. Will treat with high-dose PPI therapy twice daily if permitted, once daily if mandated by insurance. Given lack of benefit from montelukast, will discontinue. Assessment & Plan (12/15/2024 11:00 AM EDT): Chronic cough characterized by throat clearing. Differential includes chronic postnasal drip due to chronic rhinitis versus silent GERD versus element of irritable larynx. RECOMMENDATIONS: Recommend having a water bottle on hand and trying to sip water when feels the need to clear her throat. Treat for rhinitis as outlined above If no benefit with above interventions, consider empiric trial of high-dose PPI therapy for possible silent reflux. . Vitamin D deficiency 01/29/2024 Assessment & Plan (01/29/2024 7:02 PM EDT): She will start supplement, 2000 IU daily Hypothyroidism 12/18/2023 Overview (12/18/2023): Hypothyroidism. Service date: 11/30/2013. Author: Mahendra Zimmer MD. Assessment & Plan (12/18/2023 9:33 AM EDT): Continue levothyroxine. I do not have labs on file so I have ordered typical lab panel for her including a TSH History of kidney stones 12/18/2023 Class 1 obesity with serious comorbidity and body mass index (BMI) of 31.0 to 31.9 in adult 12/18/2023 Overview (12/18/2023): WHO class II, AACE stage I Assessment & Plan (01/13/2025 1:59 PM EDT): She just restarted phentermine after taking a break from Ramadan and then for surgery. Her weight is stable despite being off of it for over a month. She is excited to be able to start exercising again. She has been doing a mix of treadmill and strength training. She is hoping to get a tummy tuck. I suggested she lose a bit more weight before pursuing that but she will talk to her plastic surgeon further. She will continue phentermine 15 mg and follow-up with me in 3 months. Assessment & Plan (08/26/2024 11:25 AM EST): She was advised by her plastic surgeon not to lose further weight prior to her breast reduction. She completely stopped phentermine 2 weeks ago. I think it would be more prudent to either decrease the dose or take it every other day because I am concerned that she will rebound with her weight. She opts to take it every other day. I also asked her to restart weight lifting. She should maintain her muscle mass. Follow-up with me in 3 days Assessment & Plan (05/27/2024 3:55 PM EDT): She continues to lose weight with lifestyle changes and phentermine. She is now at goal weight for breast reduction. I will update her plastic surgery team and hopefully she will be able to schedule this with them soon. Assessment & Plan (04/08/2024 12:55 PM EDT): Continue phentermine 15 mg. I suggest she schedule appt w plastics again as she is nearing her weight goal. She is doing a great job getting protein & veggies. I emphasized that she should not restrict calories beyond RD's recommendations & asked again that she start doing resistance training. Assessment & Plan (01/29/2024 7:01 PM EDT): Losing about 2 lb/ week with current treatment plan. Feeling well. Tolerating phentermine w/o side effects. Reminded her to book appt with BARBARA. FU with me in 8-12 weeks Assessment & Plan (12/18/2023 9:32 AM EDT): Pt was educated on the pathophysiology of obesity, which is a chronic, relapsing, often progressive neuroendocrine disease with behavioral components. We discussed treatment approaches including lifestyle changes, pharmacotherapy & bariatric surgery. We discussed their personal treatment goals. We discussed targeting a weight loss goal of 5-10% over the next 6 months as this modest amount of weight loss has been shown to decrease blood pressure, insulin resistance, sleep apnea, liver inflammation, arthritic pain and improve dyslipidemia. I recommend the following labs as part of their initial evaluation, the results of which will direct further treatment recommendations: Fasting lipid, CMP, A1c, TSH w reflex, Vit D, CBC, fasting insulin Patient was given the following initial meal plan recommendations:A protein shake or a protein bar or Portuguese yogurt or cottage cheese to be consumed at breakfast and mid afternoon daily. 4 -6 ounces of protein with 6 ounces of vegetables or small salad with a noncreamy salad dressing of not more than 2 tablespoons at lunch and dinner daily. At dinner the patient may half 1/2 cup of carbohydrate. A small protein based snack or serving of fruit may also be consumed 2-3 hours after dinner. They should aim to drink 64 oz of water daily. I recommend they not regularly drink soda, juice, alcohol, high calorie caffeinated beverages. We discussed the innumerable benefits of daily exercise. I recommend patient work with our dietitian and movement specialist, Ludy Troncoso RD and have asked them to schedule an appt. While she is a very good candidate for GLP-1 receptor agonist I explained that due to drug shortages these medications are nearly impossible to get. She is not a good candidate for topiramate due to history of kidney stones. I have recommended Phentermine in addition to dietary and lifestyle changes I have explained that this medication works by suppressing appetite This medication is currently approved for short term use, but is used off label for longer term AOM tx. I have reviewed possible side effects including dry mouth, insomnia, elevated pulse, elevated blood pressure. We also discussed the listed side of effect of abuse potential, but that studies have found very low risk of addiction. Snoring 12/18/2023 Overview (01/13/2025): Negative sleep study 2024 Assessment & Plan (12/18/2023 9:33 AM EDT): High suspicion for sleep apnea. She is referred to sleep medicine Macromastia 11/19/2023 Assessment & Plan (01/13/2025 1:58 PM EDT): She had breast reduction done in November 2024. 6 pounds of breast tissue removed. Assessment & Plan (12/18/2023 9:33 AM EDT): The patient has macromastia which contributes to her chronic back pain. She would like to have a breast reduction surgery but has been recommended to lose weight before doing so Chronic neck and back pain 11/19/2023 Intertrigo 11/19/2023 Encounters Date Type Department Care Team Description 04/13/2025 Refill [facility] General Surgical Care [address] [place] [address] Tanya Griffin CNP Medication Refill 03/23/2025 11:30 AM EDT Office Visit [facility] Allergy [facility] Critical Care Medicine [address] [place] [address] Sherif Garber MD Chronic cough (Primary Dx); Seasonal allergic rhinitis, unspecified trigger; Voice disturbance 03/23/2025 Refill [facility] [address] [place] [address] Sherif Garber MD Med Change Request 03/05/[facility] [address] [place] [address] Tanya Griffin CNP Medication Refill 01/26/2025 Refill [facility] General Surgical Care [address] [place] [address] Tanya Griffin CNP Medication Refill from Last 3 Months Immunizations Immunization Administration Dates Next Due Influenza Quadrivalent Preservative Free IM 06/16 Influenza Trivalent Preservative Free IM 024 Family History Medical History Relation Comments Diabetes mellitus Father Diabetes mellitus Sister Relation Status Comments Father Mother Sister Social History Tobacco Use Types Packs/Day Years Used Date Smoking Tobacco: Never Smokeless Tobacco: Never Tobacco Cessation:Counseling Given: Not Answered Alcohol Use Standard Drinks/Week Comments Never 0 (1 standard drink = 0.6 oz pur e alcohol) Education Answer Date Recorded Are you interested in more education? Not on asim e 11/06/2023 Are you concerned about learning? Not on file 11/06/2023 No 11/06/2023 No 11/06/2023 Digital Access Answer Date Recorded No 11/06/2023 No 11/06/2023 Reliable internet access at home? Not on file 11/06/2023 Device with a working camera? Not on file Comments Unknown Sex and Gender Information Value Date Recorded Sex Assigned at Not on file Legal Sex Female 3:56 PM EDT Gender Identity Not on file Sexual Orientation Not on file Last Filed Vital Signs Vital Sign Reading Time Taken Comments Blood Pressure 114/78 03/23/2025 11:28 AM EDT Pulse 52 03/23/2025 11:28 AM EDT Temperature 36.3 C (97.4 F) 03/23/2025 11:28 AM EDT Respiratory Rate - - Oxygen Saturation 99% 03/23/2025 11:28 AM EDT Inhaled Oxygen Concentration - - Weight 82 kg (180 lb 12.8 oz) 03/23/2025 11:28 A M EDT Height 160 cm (5' 3 ) 03/23/2025 11:28 AM EDT Body Mass Index 32.03 03/23/2025 11:28 AM EDT Plan of Treatment Upcoming Encounters Date Type Department Care Team (Late st Contact Info) Description 04/28/2025 10:15 AM EDT Office Visit [facility] General Surgical Care [address] [place] [address] Tanya Griffin, [employer] MANAGEMENT PROFESSOR [address] [facility], 2nd [place] [address] 08/20/2025 11:00 AM EST Office Visit [facility], Allergy [facility] [address] [facility] [place] [address] Sherif Garber MD [address] [address] [email or web address] Health Maintenance Due Date Last Done Comments Adult Td,Tdap Booster 1972 LIPID PANEL 1972 TSH LEVEL 1972 DEPRESSION SCREENING 1984 HEPATITIS C SCREENING 1990 HIV ONE-TIME SCREENING (18-6 5 YEARS) 1990 PAP SMEAR 1993 SCREENING FOR DIABETES 2007 MAMMOGRAM 2012 COLOGUARD 2017 COLONOSCOPY 2017 COLORECTAL CANCER SCREENING 2017 FIT TEST 2017 FOBT 2017 SIGMOIDOSCOPY 2017 VIRTUAL COLONOSCOPY 2017 PNEUMOCOCCAL VACCINES (50+ y ears) (1 of 1 - PCV) 2022 ZOSTER VACCINES (1 of 2) 2022 COVID-19 VACCINE ( - 2023-2 5 season) 2024 SMOKING STATUS SCREENING (On ce After 26 Yrs) Completed 03/23/2025 HEPATITIS A VACCINES Aged Out No long er eligible based on patient's age to complete this topic HIB VACCINES Aged Out No longer eligi ble based on patient's age to complete this topic MENINGOCOCCAL VACCINES (ACWY) Aged Out No longer eligible based on patient's age to complete this topic MENINGOCOCCAL VACCINES (B) Aged Out N o longer eligible based on patient's age to complete this topic Medical Devices Not on file Insurance [facility] ACO ACO ACO ACO ACO ACO Care Teams Internet Network Specialist Relationship Specialty Start Date End Date Al Kwong MD [address] [place] [phone] PCP - General Internal Medicine 11/19/23 Additional Source Comments The information contained in this document represents components of the legal health record. It is not the complete legal health record.[facility]
== END 2025-04-20 12:30 | disposition home or self-care (01) ==
PROVIDERS: PCP Internal Medicine; Visit Provider Advanced Practice Midwife
DX: Z01.419 Encounter for gynecological examination (general) (routine) without abnormal findings (principal)
CPT/HCPCS: 99396; 99459

== ENCOUNTER → 2025-04-20 11:16 | Outpatient (BNVA) | payer OTHER, SELFPAY | PROVIDERS: PCP Internal Medicine; Visit Provider Advanced Practice Midwife | DX: Z01.419 Encounter for gynecological examination (general) (routine) without abnormal findings (principal) | CPT/HCPCS: 99396 ==

== ENCOUNTER 2025-07-15 14:22 | Outpatient (AMB) | payer OTHER, SELFPAY ==
--- NOTE | 2025-07-15 14:42 | MHC.PC.OV ---
Vital Signs 07/15/25 14:43 Height 5 ft 2.5 in Weight 179 lb BMI 32.2 BP 120/70 Blood Pressure Location Lt brachial Position Sitting Pulse 68 Pulse Source Pulse Oximeter Temp 97.3 F Temp Source Temporal Artery Scan Pulse Oximetry (%) 98 Oxygen Delivery Method Room Air Intake Visit Reasons: discuss high bp Intake Note: Patient is here to follow up on Discuss High BP. [employer] Officer Required: No Binder Technician: Not Required per policy Accompanied by: Self / Same As Patient Allergies No Known Allergies Allergy (Verified 07/15/25 14:43) Tobacco use date assessed: 07/15/25 Dental Screening Dental Screen Date: 11/19/24 [facility] Medical History (Updated 07/18/25 @ 17:25 by Al Kwong MD) Essential hypertension Allergic rhinitis Obesity Eczema Acquired hypothyroidism Surgical History H/O bilateral breast reduction surgery History of delivery Family History Mother No problems noted. Father No problems noted. Social History Household Members: Spouse and Children Housing: Apartment Alcohol intake: never Patient Tobacco Use Status: Never used Tobacco e-Cigarette/Vaping Use: Never Used Second Hand Smoke Exposure: No service: No Current occupational status: unemployed Sexual orientation: Straight/Heterosexual Gender identity: Female Cognitive needs: No Hearing needs: No Vision needs: Yes (glasses) Female Reproductive History Menstrual Age of Menarche: 17 Questionnaire PHQ-9 Over the last 2 weeks, how often have you been bothered by any of the following problems? 1. Little interest or pleasure in doing things: not at all 2. Feeling down, depressed, or hopeless: not at all 3. Trouble falling or staying asleep, or sleeping too much: not at all 4. Feeling tired or having little energy: not at all 5. Poor appetite or overeating: not at all 6. Feeling bad about yourself - or that you are a failure or have let yourself or your family down: not at all 7. Trouble concentrating on things, such as reading the newspaper or watching television: not at all 8. Moving or speaking so slowly that other people could have noticed. Or the opposite - being so fidgety or restless that you have been moving around a lot more than usual: not at all 9. Thoughts that you would be better off or of hurting yourself in some way: not at all Total score: 0 Depression Screening Interpretation: Negative Depression Screening Done: Yes Source: Developed by Drs. Evan Akbar, Teresa Odonnell, Samir Chandler and colleagues, with an educational otoniel from [employer]. Thrive Questionnaire Date Thrive assessed: 11/19/24 I am a: Patient What is your living situation today?: I choose not to answer this question Within the past 12 months, did the food you bought not last and you didn't have the money to get more?: Never true Within the past 12 months, did you worry whether your food would run out before you got money to buy more?: Never true Do you have trouble paying for medicines?: No Do you have trouble getting transportation to medical appointments?: No Do you have trouble paying your heating and electricity bill?: No Do you have trouble taking care of your child, family member or friend?: No Do you have trouble with day-to-day activities such as bathing, preparing meals, shopping, managing finances, etc.?: No Are you currently unemployed and looking for a job?: No Are you interested in more education?: No Please select the resources that you would like help with: None Currently or been in a relationship where the following occur: I choose not to answer THRIVE Score: 0 AUDIT C Alcohol Use Questionnaire (AUDIT-C) 1. How often do you have a drink containing alcohol?: Never Total Score: 0 MAXIMINO-7 AMB Questionnaire MAXIMINO-7 Date MAXIMINO - 7 assessed: 11/19/24 Feeling nervous, anxious, or on edge: 0 = Not at all Not being able to stop or control worryin = Not at all Worrying too much about different things: 0 = Not at all Trouble relaxin = Not at all Being so restless that it is hard to sit still: 0 = Not at all Becoming easily annoyed or irritable: 0 = Not at all Feeling afraid as if something awful might happen: 0 = Not at all Total MAXIMINO-7 score (0-4 normal; 5-9 mild; 10-14 moderate; 15-21 severe): 0 Source: Developed by Drs. Evan Akbar, Teresa Odonnell, Samir Chandler and colleagues, with an educational otoniel from [employer]. Physical exam (Primary Care) Vital Signs: Last Vital Signs Temp 97.3 F 07/15/25 14:43 Pulse 68 07/15/25 14:43 BP 120/70 07/15/25 14:43 Pulse Ox 98 07/15/25 14:43 Oxygen Delivery Method Room Air 07/15/25 14:43 BMI result Body Mass Index 32.2 Tobacco/Smoking Status: Tobacco use Status Tobacco use date assessed 07/15/25 07/15/25 14:51 Patient Tobacco Use Status Never used Tobacco 07/15/25 14:51 e-Cigarette/Vaping Use Never Used 07/15/25 14:51 PHQ-9: PHQ-9 Score PHQ-9: Total score 0 07/15/25 14:51 Depression Screening Interpretation: Negative Thrive Assessment: Date of Thrive Assessment Date Thrive assessed 11/19/24 07/15/25 14:51 Currently or been in a relationship where the following occur: I choose not to answer Coding Level of Care Code Est Pt Level 4 (46676) Complex EM visit Add On G2211 Diagnoses Essential hypertension I10 Assessment & Plan Assessment & Plan (1) Essential hypertension: Code(s): I10 - Essential (primary) hypertension Category: Medical Plan: History of Present Illness - The patient is a 55-year-old female presenting with elevated blood pressure. - She reports elevated blood pressure readings over the past three months, initially identified during a weight loss consultation. - Associated symptoms include headaches. - The patient was on phentermine for weight loss, which she suspects contributed to her elevated blood pressure. - She discontinued phentermine two and a half months ago and is now on Zepbound injections. - She has a history of thyroid disorder, managed with levothyroxine. - Menopausal symptoms include sleep disturbances, feeling cold, and sweating. - The patient is scheduled for surgery to remove excess skin after significant weight loss. - She has lost approximately 50-55 pounds, currently weighing around 179 pounds. - Preventative care includes a planned colonoscopy for colon cancer screening. Social History - The patient has been actively engaged in weight loss efforts, resulting in a significant weight reduction of approximately 50-55 pounds. - She is currently using Zepbound injections as part of her weight management strategy. Review of Systems - Cardiovascular: Reports elevated blood pressure readings, denies chest pain or palpitations. - Neurological: Reports headaches, denies dizziness or syncope. - Endocrine: Reports menopausal symptoms including sleep disturbances, feeling cold, and sweating. - Dermatological: Reports excess skin following weight loss, scheduled for surgical removal. Physical Exam General: Cooperative and healthy appearing Nutritional Appearance: Well nourished Orientation/consciousness: Patient oriented x3 Limitations: No limitations Head: Normal to inspection General: Appearance normal, both eyes and all related structures Neck: Normal visual inspection Chest: Normal palpation of entire chest wall Respiratory: Normal respiratory effort Neurology: Patient oriented x3 Results Plan - Start antihypertensive medication to control blood pressure, to be taken daily. - Continue Zepbound injections for weight loss until surgery in September. - Proceed with colonoscopy for colon cancer screening. - Monitor blood pressure at home and report any significant changes. Discussion Notes I discussed with the patient the initiation of antihypertensive medication to manage her elevated blood pressure, emphasizing the importance of daily adherence regardless of current readings. We reviewed the continuation of Zepbound injections for weight management until her scheduled surgery in September. I also recommended a colonoscopy for colon cancer screening as part of her preventative care. The patient was advised to monitor her blood pressure at home and report any significant changes or symptoms. Patient Instructions - Take your blood pressure medication every day, even if your blood pressure seems normal. - Continue with Zepbound injections as directed until your surgery in September. - Schedule and complete your colonoscopy for colon cancer screening. - Monitor your blood pressure at home and let us know if you notice any significant changes. Orders: Orders Lipid Panel 07/15/25 E03.9 - Hypothyroidism, unspecified Liver Panel 07/15/25 E03.9 - Hypothyroidism, unspecified Thyroid Stimulating Hormone 07/15/25 E03.9 - Hypothyroidism, unspecified UA and rflx microscopic 07/15/25 E03.9 - Hypothyroidism, unspecified Basic Metabolic Panel 07/15/25 E03.9 - Hypothyroidism, unspecified Complete Blood Count no Diff 07/15/25 E03.9 - Hypothyroidism, unspecified Referrals Gastroenterology Referral Z12.11 - Encounter for screening for malignant neoplasm of colon Medications: New enalapril maleate 5 mg PO DAILY 30 tabs 1RF
[2025-07-15 14:43] VITALS: BP 120/70; PULSE 68; TEMP 36.3; O2SAT 98; BMI 32.2
--- OUTSIDE RECORDS SUMMARY | 2025-07-15 17:25 | XMS_ITS | Clinical Summary ---
Author Organization [facility] Address [address] [place] [phone] Phone Care Team Providers Care Heel Seat Flap Stapler Name Role Phone Al Kwong MD Primary Care Provid er Allergies No known active allergies Medications hydrOXYzine (ATARAX) 25 MG tablet Take 25 mg by mouth daily. 10/27/19 24 Active levothyroxine (SYNTHROID, LEVOTHROID) 50 MCG tablet Take 50 mcg by mouth every morning. Active clobetasol (TEMOVATE) 0.05 % cream 12/08/19 24 Active cholecalciferol , vitamin D3, (VITAMIN D3 ORAL) Take 2,000 Units by mouth daily. Active azelastine (ASTELIN) 137 mcg (0.1 %) nasal spray 1 spray by Nasal route 2 (two) times a day. 30 mL 5 03/23/20 25 Active tacrolimus (PROTOPIC) 0.1 % ointment APPLY TO EARS, HANDS, GROIN, ARMS, LEGS, AND TRUNK TWICE DAILY NEEDED FOR FLARES 04/16/20 25 Active famotidine (PEPCID) 40 MG tablet TAKE 1 TABLET BY MOUTH NIGHTLY AT BEDTIME 90 tablet 3 06/18/20 25 Active esomeprazole (NEXIUM) 40 MG capsule TAKE 1 CAPSULE BY MOUTH EVERY DAY BEFORE BREAKFAST 90 capsule 3 06/18/20 25 Active tirzepatide, weight loss, (ZEPBOUND) 5 mg/0.5 mL subcutaneous penIndications: Class 1 obesity with serious comorbidity and body mass index (BMI) of 31.0 to 31.9 in adult, unspecified obesity type Inject 0.5 mL (5 mg total) under the skin every 7 days. 2 mL 06/23/20 Active hydrocortisone 2.5 % ointment APPLY TO ITCHY AREAS ON FACE, UNDER BREASTS, AND IN GROIN TWOXDAILY DECREASE USE SYMPTOMS IMPROVE 01/03/20 24 025 Discontinued esomeprazole (NEXIUM) 40 MG capsule Take 1 capsule (40 mg total) by mouth daily before breakfast. 30 capsule 2 03/23/20 25 025 Discontinued famotidine (PEPCID) 40 MG tablet Take 1 tablet (40 mg total) by mouth nightly at bedtime. 30 tablet 2 03/23/20 25 Discontinued phentermine 15 MG capsuleIndicati ons:Class 1 obesity with serious comorbidity and body mass index (BMI) of 31.0 to 31.9 in adult, unspecified obesity type TAKE 1 CAPSULE BY MOUTH EVERY DAY BEFORE BREAKFAST 30 capsule 04/13/20 25 025 Discontinued tirzepatide, weight loss, (ZEPBOUND) 5 mg/0.5 mL subcutaneous pen Inject 0.5 mL (5 mg total) under the skin every 7 days. 2 mL 06/01/20 025 Discontinued(Re order) Active Problems Problem Noted Date Diagnosed Date Primary hypertension 06/23/2025 Assessment & Plan (06/23/2025 10:54 AM EDT): BP remains elevated even off phentermine. Asked her to schedule an appointment with her PCP. Voice disturbance 03/23/2025 Assessment & Plan (03/23/2025 [...] II, AACE stage I Assessment & Plan (06/23/2025 10:54 AM EDT): I want her to increase her protein and calorie intake. She will schedule an appointment with the dietitian. I recommend she do another month on 5 mg so she is able to increase her food intake. Continue exercise routine. Her blood pressure is high again today so I asked her to schedule an appointment with her primary care provider Assessment & Plan (04/28/2025 10:43 AM EDT): Patient is starting to regain some weight and additionally she is having palpitations and her blood pressure is elevated after being on phentermine for the past year. Would like to switch her to a GLP-1 receptor agonist. I have recommended the following Anti-Obesity Medication: Tirzepatide They will start at 2.5 mg q week x 4 wk, then if tolerated we can titrate every 4 weeks The patient has completed > 6 months of efforts focused on dietary and lifestyle changes and has been unsuccessful in reaching their weight loss goals. I have explained that this medication decreases appetite & food cravings and increases feeling of fullness. I have reviewed the following possible side effects: Nausea, vomiting, constipation, gastroparesis, SBO, pancreatitis, gallstones, suicidal thoughts, diabetic retinopathy, optic neuropathy, low blood sugar and in rat studies an increased risk of medullary thyroid cancer and MEN2. This medication is not recommended in patients with a personal or family history of medullary thyroid cancer or multiple endocrine neoplasia 2A or 2B. We also discussed health insurance inflicted barriers to obtaining GLP1RA and possible need for prior authorization & appeal Assessment & Plan (01/13/2025 1:59 PM EDT): [...] effects. Reminded her to book appt with RD. FU with me in 8-12 weeks Assessment [...] protein shake or a protein bar or Romansh yogurt or cottage cheese to be consumed [...] Encounters Date Type Department Care Team Description 06/23/2025 10:45 AM EDT Office Visit [facility] General Surgical Care [address] [place] [address] [place] [address] Tanya Griffin CNP Class 1 obesity with serious comorbidity and body mass index (BMI) of 31.0 to 31.9 in adult, unspecified obesity type (Primary Dx); Primary hypertension 06/18/2025 Refill [facility] Pulmonary, Allergy and Critical Care Medicine [address] [place] [address] Sherif Garber MD Medication Refill 05/31/2025 Refill [facility] General Surgical Care [address] [place] [address] Tanya Griffin CNP Medication Refill (Out of injections) 05/27/2025 Refill [facility] Surgical Care [address] [place] [address] Tanya Griffin CNP Medication Refill 04/28/2025 10:15 AM EDT Office Visit [facility] General Surgical Care [address] [place] [address] Tanya Griffin CNP Class 1 obesity with serious comorbidity and body mass index (BMI) of 31.0 to 31.9 in adult, unspecified obesity type from Last 3 Months Immunizations Immunization Administration Dates Next Due INFLUENZA, SPLIT VIRUS, TRIVALENT PF 08/03/2024 Influenza Quadrivalent Preservative Free IM 06/16 Family History Medical History Relation Comments Diabetes [...] Sign Reading Time Taken Comments Blood Pressure 140/90 06/23/2025 10:50 AM EDT Pulse 61 06/23/2025 10:00 AM EDT Temperature 36.8 C (98.2 F) 06/23/2025 10:00 AM EDT Respiratory Rate - - Oxygen Saturation 98% 06/23/2025 10:00 AM EDT Inhaled Oxygen Concentration - - Weight 80.5 kg (177 lb 6.4 oz) 06/23/2025 10:00 AM EDT Height 160 cm (5' 2.99 ) 06/23/2025 10:00 AM EDT Body Mass Index 31.43 06/23/2025 10:00 AM EDT Plan of Treatment Upcoming Encounters Date Type Department Care Team (Late st Contact Info) Description 07/21/2025 10:30 AM EST Nutrition [facility] General Surgical Care [address] [place] [address] Ailyn Troncoso LDN [address] [place] [address] 08/20/2025 11:00 AM EST Office Visit [facility], Allergy [facility] Critical [facility] [address] [place] [address] Sherif Garber MD [address] [place] [phone] 09/24/2025 10:30 AM EST Office Visit [facility] General Surgical Care [address] [place] [address] Gaby Tanya Chen, PLANT SPRAYER 15 [facility], [address] [place] [phone] [email or web address] Health Maintenance Due Date Last Done Comments Adult Td,Tdap Booster 1972 LIPID PANEL 1972 TSH LEVEL 1972 DEPRESSION SCREENING 1984 HEPATITIS C SCREENING 1990 HIV ONE-TIME SCREENING (18-6 5 YEARS) 1990 PAP SMEAR 1993 SCREENING FOR DIABETES 2007 MAMMOGRAM 2012 COLOGUARD 2017 COLONOSCOPY 2017 COLORECTAL CANCER SCREENING 2017 FIT TEST 2017 FOBT 2017 SIGMOIDOSCOPY 2017 VIRTUAL COLONOSCOPY 2017 PNEUMOCOCCAL VACCINES (50+ years) (1 of 1 - PCV) 2022 ZOSTER VACCINES (1 of 2) 2022 INFLUENZA VACCINE (#1) 2025 4, 07/03/2022 COVID-19 VACCINE (1 - 2024-2 6 season) 2025 BLOOD PRESSURE 12/22/2025 06/23/2025 RSV VACCINE (1 - 1-dose 75+ series) 2047 SMOKING STATUS SCREENING (On ce After 26 Yrs) Completed 06/23/2025 HEPATITIS A VACCINES Aged Out No long [...] topic Medical Devices Not on file Insurance ACO ACO ACO ACO ACO ACO Care Teams Heel Seat Flap Stapler Relationship Specialty Start Date End Date Al Kwong MD [address] [place] [phone] PCP - General Internal Medicine 11/19/23 Additional Source Comments The information contained in this document represents components of the legal health record. It is not the complete legal health record.[facility]
== END 2025-07-15 15:30 | disposition home or self-care (01) ==
LOC: HO.HMCH 14:23
PROVIDERS: PCP Internal Medicine; Visit Provider Internal Medicine
DX: I10 Essential (primary) hypertension (principal)

== ENCOUNTER → 2025-07-15 14:22 | Outpatient (BNVA) | payer OTHER, SELFPAY | PROVIDERS: PCP Internal Medicine; Visit Provider Internal Medicine | DX: I10 Essential (primary) hypertension (principal); E03.9 Hypothyroidism, unspecified | CPT/HCPCS: 99212 ==

== ENCOUNTER 2025-08-31 10:14 | Outpatient (REF) | payer OTHER, SELFPAY ==
[2025-08-31 10:28] LABS: MANUAL DIFF FLAG NO
[2025-08-31 11:12] LABS: Appearance Urine Cloudy; Glucose Urine UA Negative (Negative); PH 5.0 (5.0-9.0); Specific Gravity - Urine 1.020 (1.005-1.025); UMIC TRIGGER UA YES
[2025-08-31 11:13] LABS: Hematocrit 43.8 % (37.0-47.0); Hemoglobin 14.4 g/dl (12.0-16.0); Imm Gran Abs Auto 0.02 X10*3/uL (0.00-0.03); Imm Gran Pct Auto 0.3 % (0.0-0.4); Lymphocytes Absolute Auto 2.4 X10*3/uL (1.2-4.9); Mean Corpuscular HGB Conc 32.9 g/dl (31.0-35.0); Mean Corpuscular Hemoglobin 28.2 pg (27.0-33.0); Mean Corpuscular Volume 85.7 fL (80.0-98.0); NRBC Abs Auto 0.000 X10*3/uL (0.0-0.012); NRBC Pct Auto 0.0 /100WBC (0.0-0.2); Platelet Count 221 X10*3/uL (160-400); Red Blood Count 5.11 X10*6/uL (4.20-5.50); White Blood Count 6.7 X10*3/uL (4.8-10.8)
[2025-08-31 11:52] LABS: Alanine Aminotransferase 24 U/L (0-31); Albumin Level 4.6 g/dL (3.5-5.0); Alkaline Phosphatase 75 U/L (39-117); Anion Gap 11 (12-20); Aspartate Amino Transferase 26 U/L (5-31); Blood Urea Nitrogen 14 mg/dL (9-16); Calcium 10.4 mg/dL (8.4-10.2); Carbon Dioxide 26 mmol/L (22-29); Chloride 108 mmol/L (96-108); Cholesterol 145 mg/dL (<200); Estimated Glomerular Filt Rate > 60; HDL Cholesterol 41 mg/dL (>40); Potassium 4.3 mmol/L (3.3-5.1); Sodium 141 mmol/L (135-145); Total Protein 7.3 g/dL (6.5-8.0); Triglycerides 90 mg/dL (<150)
[2025-08-31 12:08] LABS: Thyroid Stimulating Hormone 1.61 uIU/mL (0.32-4.0)
--- OUTSIDE RECORDS SUMMARY | 2025-08-31 12:48 | XMS_ITS | Encounter Summary ---
Author Organization [facility] Address [address] [facility] [address] [place] [phone] Phone Care Team Providers Care Special Makeup Fx Artist Instructor Name Role Phone Al Kwong MD Primary Care Provid er Reason for Visit * Reason Comments Medication Refill Encounter Details Date Type Department Care Team (Late st Contact Info) Description 08/03/2025 Refill [facility] General Surgical Care [address] [place] [address] Tanya Griffin, SUPERVISOR [employer] 15 [facility], 2nd [place] [address] [email or web address] Medication Refill Social History Tobacco Use Types Packs/Day Years Used Date Smoking Tobacco: Never Smokeless Tobacco: Never Alcohol Use Standard Drinks/Week Comments Never 0 [...] on file Sexual Orientation Not on file documented as of this encounter Last Filed Vital Signs Vital Sign Reading Time Taken Comments Blood Pressure - - Pulse - - Temperature - - Respiratory Rate - - Oxygen Saturation - - Inhaled Oxygen Concentration - - Weight 79.4 kg (175 lb) 08/04/2025 8:38 AM EST Height - - Body Mass Index 31.01 06/23/2025 10:00 AM EDT documented in this encounter Progress Notes * Tanya Griffin CNP - 08/04/2025 8:40 AM EST 7.5 mg dose sent. Please reschedule the appt she missed w Ludy * Viji Banks RN - 08/03/2025 2:54 PM EST Current weight 175 documented in this encounter Plan of Treatment Upcoming Encounters Date Type Department Care Team (Late st Contact Info) Description 09/01/2025 8:30 AM EST Office Visit [facility] LW [address] [place] [address] Marjorie Ayoub MD [address] [place] [phone] [email or web address] 09/24/2025 10:30 AM EST Office Visit [facility] General Surgical Care [address] [place] [address] Tanya Griffin CNP 15 [facility], 2nd [place] [address] documented as of this encounter Visit Diagnoses Diagnosis Class 1 obesity with serious comorbidity and body mass index (BMI) of 31.0 to 31.9 in adult, unspecified obesity type documented in this encounter Care Teams Special Makeup Fx Artist Instructor Relationship Specialty Start Date End Date Al Kwong MD [address] [place] [phone] PCP - General Internal Medicine 11/19/23 documented as of this encounter Additional Source Comments The information contained in this document represents components of the legal health record. It is not the complete legal health record.[facility]
--- OUTSIDE RECORDS SUMMARY | 2025-08-31 12:48 | XMS_ITS | Clinical Summary ---
Author Organization [facility] Address [address] [place] [phone] Phone Care Team Providers Care Lay Out Drafter Name Role Phone Al Kwong MD Primary Care Provid er Allergies No known active allergies Medications hydrOXYzine (ATARAX) 25 MG tablet Take 25 mg by mouth daily. 10/27/19 24 Active levothyroxine (SYNTHROID, LEVOTHROID) 50 MCG tablet Take 50 mcg by mouth every morning. Active clobetasol (TEMOVATE) 0.05 % cream 12/08/19 24 Active cholecalciferol, vitamin D3, (VITAMIN D3 ORAL) Take 2,000 [...] 06/18/20 25 Active tirzepatide, weight loss, (ZEPBOUND) 7.5 mg/0.5 mL subcutaneous penIndications:C lass 1 obesity with serious comorbidity and body mass index (BMI) of 31.0 to 31.9 in adult, unspecified obesity type Inject 0.5 mL (7.5 mg total) under the skin every 7 days. 2 mL 08/04/20 25 Active tirzepatide, weight loss, (ZEPBOUND) 5 mg/0.5 mL subcutaneous penIndications:C lass 1 obesity with serious comorbidity and body mass index (BMI) of 31.0 to 31.9 in adult, unspecified obesity type Inject 0.5 mL (5 mg total) under the skin every 7 days. 2 mL 06/23/20 25 025 Discontinued Active Problems Problem Noted Date Diagnosed [...] protein shake or a protein bar or Japanese yogurt or cottage cheese to be consumed [...] Encounters Date Type Department Care Team Description 08/30/2025 Refill [facility] General Surgical Care [address] [place] [address] Tanya Griffin CNP Medication Refill 08/03/2025 Refill [facility] General Surgical Care [address] [place] [address] Tanya Griffin CNP Medication Refill 06/23/2025 10:45 AM EDT Office Visit [facility] Surgical Care [address] [place] [address] Tanya Griffin CNP Class 1 obesity with serious comorbidity and body mass index (BMI) of 31.0 to 31.9 in adult, unspecified obesity type (Primary Dx); Primary hypertension 06/18/2025 Refill [facility] Pul[facility], Allergy and Critical Care Medicine [address] [place] [phone] Sherif Garber MD Medication Refill from Last 3 Months Immunizations [...] EDT Inhaled Oxygen Concentration - - Weight 79.4 kg (175 lb) 08/04/2025 8:38 AM EST Height 160 cm (5' 2.99 ) 06/23/2025 10:00 AM EDT Body Mass Index 31.01 06/23/2025 10:00 AM EDT Plan of Treatment Upcoming Encounters Date Type Department Care Team (Late st Contact Info) Description 09/01/2025 8:30 AM EST Office Visit [facility] [address] [place] [address] Marjorie Ayoub MD [address] [place] [phone] [email or web address] 09/24/2025 10:30 AM EST [facility] [address] [place] [address] Tanya Griffin, LAST GREASER 15 [facility], 2nd [place] [address] Health Maintenance Due Date Last Done Comments [...] VACCINE (#1) 2025 4, 07/03/2022 COVID-19 VACCINE ( - 2024-2 6 season) 2025 BLOOD PRESSURE [...] ACO ACO ACO ACO ACO Care Teams Lay Out Drafter Relationship Specialty Start Date End Date Al Kwong MD [address] [place] [address] [phone] PCP - General Internal Medicine 11/19/23 Additional Source Comments The information contained in this document represents components of the legal health record. It is not the complete legal health record.[facility]
--- OUTSIDE RECORDS SUMMARY | 2025-08-31 12:48 | XMS_ITS | Encounter Summary ---
Author Organization [facility] Address [address] [facility] [address] [place] [address] Phone Care Team Providers Care Fancy Wire Drawer Name Role Phone Al Kwong MD Primary Care Provid er Reason for Visit * Reason Comments Medication Refill Encounter Details Date Type Department Care Team (Late st Contact Info) Description 08/30/2025 Refill [facility] General Surgical Care [address] [place] [address] Tanya Griffin, MANHOLE STRIPPER 15 [facility], 2nd [place] [address] [email or web address] Medication Refill Social History Tobacco Use Types [...] on file documented as of this encounter Plan of Treatment Upcoming Encounters Date Type Department Care Team (Late st Contact Info) Description 09/01/2025 8:30 AM EST Office Visit [facility] [address] [place] [address] Marjorie Ayoub MD [address] [place] [address] [email or web address] 09/24/2025 10:30 AM EST Office Visit [facility] General Surgical Care 15 [place] [address] Tanya Griffin, RAGINI [address] [facility], 2nd [place] [address] [email or web address] documented as of this encounter Visit Diagnoses Diagnosis Class 1 obesity with serious comorbidity and body mass index (BMI) of 31.0 to 31.9 in adult, unspecified obesity type documented in this encounter Care Teams Fancy Wire Drawer Relationship Specialty Start Date End Date Al Kwong MD [address] [place] [address] [address] PCP - General Internal Medicine 11/19/23 documented as of this encounter Additional Source Comments The information contained in this document represents components of the legal health record. It is not the complete legal health record.[facility]
== END 2025-08-31 10:15 | disposition home or self-care (01) ==
LOC: HO.LAB 10:14
PROVIDERS: PCP Internal Medicine; Visit Provider Internal Medicine
DX: Z01.818 Encounter for other preprocedural examination (principal); E03.9 Hypothyroidism, unspecified
CPT/HCPCS: 36415; 80048; 80061; 80076; 81001; 84443; 85025; 85027

== ENCOUNTER 2025-09-03 15:21 | Outpatient (REF) | payer OTHER, SELFPAY ==
--- NOTE | ~2025-09-03 | MM_ITS ---
EXAMINATION: MM SCREENING DIGITAL BREAST TOMOSYNTHESIS, BILATERAL CLINICAL INFORMATION: Screening. Asymptomatic. COMPARISON: Mammography: Comparison is made with available priors TECHNIQUE: Digital breast mammography with tomosynthesis is performed in both the craniocaudal and mediolateral oblique views along with computer-aided detection (CAD). FINDINGS: The breasts are heterogeneously dense, which may obscure small masses. Bilateral reduction mammoplasty. There are no significant masses, abnormal calcifications, or other abnormalities. MM/MM tomosynthesis screening BI IMPRESSION: No mammographic evidence of malignancy. ASSESSMENT: BI-RADS Category 2: Benign RECOMMENDATION: Routine annual mammography screening. 1 year F/U This examination should not preclude the clinical evaluation of a suspicious palpable abnormality. This patient's information was entered into a reminder system with a target due date for their next mammogram. Electronically signed by: Nydia Mon DO 09/07/2025 10:30 AM [facility]
--- OUTSIDE RECORDS SUMMARY | 2025-09-03 16:29 | XMS_ITS | Encounter Summary ---
Author Organization [facility] Address [address] [facility] [address] [place] [address] Phone Care Team Providers Care Manager Progressive Care Name Role Phone Al Kwong MD Primary Care Provid er Reason for Visit * Reason Comments Medication Refill Encounter Details Date Type Department Care Team (Late st Contact Info) Description 08/30/2025 Refill [facility] General Surgery Clinic [address] [place] [address] Tanya Griffin, SPECIALTY FOODS COOK 15 [facility], 2nd [place] [address] [email or web address] Medication Refill Social History Tobacco Use Types [...] - Inhaled Oxygen Concentration - - Weight 78.9 kg (174 lb) 08/31/2025 2:18 PM EST Height - - Body Mass Index 30.83 06/23/2025 10:00 AM EDT documented in this encounter Plan of Treatment Upcoming Encounters Date Type Department Care Team (Late st Contact Info) Description 09/24/2025 10:30 AM EST Office Visit [facility] Clinic [address] [place] [address] Tanya Griffin, SPECIALTY FOODS COOK 15 [facility], 2nd [place] [address] 12/01/2025 10:45 AM EDT Office Visit [facility] Ophthalmology Plastic and Reconstructive Surgery [address] [place] [address] Marjorie Ayoub MD [address] [place] [phone] [email or web address] documented as of this encounter Visit Diagnoses Diagnosis Class 1 obesity with serious comorbidity and body mass index (BMI) of 31.0 to 31.9 in adult, unspecified obesity type documented in this encounter Care Teams Manager Progressive Care Relationship Specialty Start Date End Date Al Kwong MD [address] [place] [phone] PCP - General Internal Medicine 11/19/23 documented as of this encounter Additional Source Comments The information contained in this document represents components of the legal health record. It is not the complete legal health record.[facility]
--- OUTSIDE RECORDS SUMMARY | 2025-09-03 16:29 | XMS_ITS | Clinical Summary ---
Author Organization [facility] Address [address] [place] [phone] Phone Care Team Providers Care Archivist Nonprofit Foundation Name Role Phone Al Kwong MD Primary [...] to 31.9 in adult, unspecified obesity type INJECT 0.5 ML (7.5 MG TOTAL) UNDER THE SKIN EVERY 7 DAYS 2 mL 08/31/20 25 Active tirzepatide, weight loss, (ZEPBOUND) 7.5 mg/0.5 mL subcutaneous penIndications:C lass 1 obesity with serious comorbidity and body mass index (BMI) of 31.0 to 31.9 in adult, unspecified obesity type Inject 0.5 mL (7.5 mg total) under the skin every 7 days. 2 mL 08/04/20 25 025 Discontinued Active Problems Problem Noted [...] protein shake or a protein bar or [place] yogurt or cottage cheese to be consumed [...] Type Department Care Team Description 08/30/2025 Refill [facility] Clinic [address] [place] [address] Tanya Griffin, RAGINI Medication Refill 08/03/2025 Refill [facility] [address] [place] [address] Tanya Griffin, SPRING TIER Medication Refill 06/23/2025 10:45 AM EDT Office Visit [facility] [address] [place] [address] Tanya Griffin, RAGINI Class 1 obesity with serious comorbidity and body mass index (BMI) of 31.0 to 31.9 in adult, unspecified obesity type (Primary Dx); Primary hypertension 06/18/2025 Refill [facility] Pulmonology, Allergy and Critical Care Medicine Clinic [address] [place] [address] Sherif Garber MD Medication Refill from Last [...] EDT Inhaled Oxygen Concentration - - Weight 78.9 kg (174 lb) 08/31/2025 2:18 PM EST Height 160 cm (5' 2.99 ) 06/23/2025 10:00 AM EDT Body Mass Index 30.83 06/23/2025 10:00 AM EDT Plan of Treatment Upcoming Encounters Date Type Department Care Team (Late st Contact Info) Description 09/24/2025 10:30 AM EST Office Visit [facility] Surgery Clinic 15 [place] [address] Tanya Griffin, RAGINI 15 [facility], 2nd [place] [address] 12/01/2025 10:45 AM EDT Office Visit [facility] Eye and Ear Ophthalmology Plastic and Reconstructive Surgery [address] [place] [address] Marjorie Ayoub MD [address] [place] [phone] [email or web address] Health Maintenance Due Date Last Done Comments [...] ACO ACO ACO ACO ACO Care Teams Archivist Nonprofit Foundation Relationship Specialty Start Date End Date Al Kwong MD [address] [place] [address] [phone] PCP - General Internal Medicine 11/19/23 Additional Source Comments The information contained in this document represents components of the legal health record. It is not the complete legal health record.[facility]
--- OUTSIDE RECORDS SUMMARY | 2025-09-03 16:29 | XMS_ITS | Encounter Summary ---
Author Organization [facility] [place] [facility] Address [address] [facility] [address] [place] [phone] Phone Care Team Providers Care Respiratory Care Practitioner Name Role Phone Al Kwong MD Primary Care Provid er Reason for Visit * Reason Comments Medication Refill Encounter Details Date Type Department Care Team (Late st Contact Info) Description 08/03/2025 Refill [facility] [place] [facility] General Surgery Clinic 15 [place] [address] Tanya Griffin, ANALYSIS MGR 15 [facility], 2nd [place] [address] [email or web address] Medication [...] Description 09/24/2025 10:30 AM EST Office Visit [facility] General Surgery Clinic 15 [place] [address] Tanya Griffin CNP [address] [address] [email or web address] 12/01/2025 10:45 AM EDT Office Visit [facility] Eye and Ear Ophthalmology Plastic and Reconstructive Surgery [address] [place] [address] Marjorie Ayoub MD [address] [place] [phone] [email or web address] documented as of this encounter Visit Diagnoses Diagnosis Class 1 obesity with serious comorbidity and body mass index (BMI) of 31.0 to 31.9 in adult, unspecified obesity type documented in this encounter Care Teams Respiratory Care Practitioner Relationship Specialty Start Date End Date Al Kwong MD [address] [place] [phone] PCP - General Internal Medicine 11/19/23 documented as of this encounter Additional Source Comments The information contained in this document represents components of the legal health record. It is not the complete legal health record.[facility]
== END 2025-09-03 15:22 | disposition home or self-care (01) ==
LOC: HO.MAMMO 15:21
PROVIDERS: PCP Internal Medicine; Visit Provider Internal Medicine
DX: Z12.31 Encounter for screening mammogram for malignant neoplasm of breast (principal)
CPT/HCPCS: 77063; 77067

== ENCOUNTER → 2025-09-03 15:30 | Outpatient (BNV) | payer OTHER, SELFPAY | PROVIDERS: PCP Internal Medicine; Visit Provider Internal Medicine | DX: Z12.31 Encounter for screening mammogram for malignant neoplasm of breast (principal) | CPT/HCPCS: 77063; 77067 ==